=== PATIENT | female | born 1990 | race Caucasian/White ===

== ENCOUNTER 2020-11-04 10:42 | Emergency (ER) | payer OTHER, SELFPAY ==
[2020-11-04 10:46] VITALS: BP 155/82; PULSE 90; RESP 16; TEMP 36.1; O2SAT 98; BMI 31.8
--- NOTE | 2020-11-04 11:38 | ED_ITS ---
HPI - General Adult General Chief complaint: General Medical Stated complaint: anxiety Time Seen by Provider: 11/04/20 11:06 Source: patient Mode of arrival: ambulatory Limitations: no limitations History of Present Illness HPI narrative: 30 y/o female with a history of substance abuse, anxiety, PTSD, depression who presents to the ER requesting refills of her medications. She reports completing rehab in [place], [place] and now is residing in a 12 month residential program for recovery. She states her medications ran out 1 week ago and the provider from the rehab will not refill them. She is from [place] and has an appointment with a new PCP here in 2 weeks. She has been more anxious off of her medications and having a hard time sleeping. She reports compliance with her Suboxone and maintaining sobriety. She reports her medications are administered at her program. complaint: med refill Onset (ago): week(s) (1) Severity: moderate Relieving factors: medication Associated symptoms: denies other symptoms Treatments prior to arrival: none Related Data Previous Rx's Medication Instructions Recorded clindamycin HCl 300 mg PO Q6H 7 Days #28 cap 11/04/20 clonidine HCl 0.1 mg PO .every 6 hours PRN #14 11/04/20 tab hydroxyzine HCl 100 mg PO QID PRN #30 tab 11/04/20 ibuprofen 600 mg PO Q8H PRN #30 tab 11/04/20 oxcarbazepine [Trileptal] 600 mg PO BID #30 tab 11/04/20 quetiapine [Seroquel] 50 mg PO Q6H 14 Days #56 tab 11/04/20 trazodone 100 mg PO BEDTIME PRN #20 tab 11/04/20 Allergies Allergy/AdvReac Type Severity Reaction Status Date / Time amoxicillin Allergy Hives Verified 11/04/20 10:50 Review of Systems Review of Systems: Constitutional: No Fever, No Chills ENT/Mouth: No sore throat, No Rhinorrhea, No Swallowing Difficulty, +tooth pain Cardiovascular: No Chest Pain, No SOB Respiratory: No Cough, No Sputum Gastrointestinal: No Nausea, No Vomiting Genitourinary: No Dysuria, No Urinary Frequency, No Hematuria Musculoskeletal: No joint pain, No Myalgias Skin: No Skin Lesions, No rash Neuro: No Dizziness, + Headache Psych: + Anxiety/Panic, No Depression PMFSH Past Medical History Medical History Anxiety Depression Ovarian cyst PTSD (post-traumatic stress disorder) Social History Social History Advance Directives: No Advance Directives Information Provided: Yes Patient : No Physical Exam Vital Signs: Vital Signs: Last Vital Signs Temp 97 F 11/04/20 10:46 Pulse 90 11/04/20 10:46 Resp 16 11/04/20 10:46 BP 155/82 H 11/04/20 10:46 Pulse Ox 98 11/04/20 10:46 Body Mass Index 31.8 Appearance: Alert. Oriented X3. No acute distress. Eyes: Pupils equal, round and reactive to light. ENT: Pharynx with mois mucus membranes. Dentition very poor with multiple broken teeth with decay, multiple missing teeth. No palpable abscess, no trismus. Neck: Normal inspection. Neck supple. CVS: Normal heart rate and rhythm. Pulses normal. Respiratory: No respiratory distress. Breath sounds normal. Skin: Skin warm and dry. Normal skin color. Normal skin turgor. No rashes. Extremities: No lower extremity edema. Neuro: Oriented X 3. Non-focal. Course Course Course Narrative: 30 y/o female presenting with med refill request for multiple medications. Called [facility] and confirmed her medication doses and last pick ups. Will provide a 2 week supply until she can be seen by her new PCP. Will also provide Motrin for dental pain and 1 week fo augmentin for dental infection. Emergency dental numbers provided and patient will follow up. Stable for discharge. Discharge Plan Discharge Clinical Impression: Anxiety, Substance abuse, Dental decay Depression Qualifiers: Depression Type: other depression Qualified Code(s): F32.89 - Other specified depressive episodes Patient Disposition: Home, Self-Care Instructions: Toothache (ED), Anxiety (ED) Additional Instructions: Take all medications as directed. Follow up with your new doctor in 2 weeks as scheduled. Follow up with a dentist [facility] - a list was provided to you. Prescriptions: New clonidine HCl 0.1 mg tablet 0.1 mg PO .every 6 hours PRN (Reason: anxiety) Qty: 14 RF: 0 quetiapine [Seroquel] 50 mg tablet 50 mg PO Q6H 14 Days Qty: 56 RF: 0 oxcarbazepine [Trileptal] 600 mg tablet 600 mg PO BID Qty: 30 RF: 0 trazodone 100 mg tablet 100 mg PO BEDTIME PRN (Reason: sleep) Qty: 20 RF: 0 hydroxyzine HCl 50 mg tablet 100 mg PO QID PRN (Reason: anxiety) Qty: 30 RF: 0 ibuprofen 600 mg tablet 600 mg PO Q8H PRN (Reason: pain) Qty: 30 RF: 0 clindamycin HCl 300 mg capsule 300 mg PO Q6H 7 Days Qty: 28 RF: 0 Interventions: ED Discharge Assessment Last Done: 11/04/20 11:54 Discharge Date/Time: 11/04/20 11:55
== END 2020-11-04 11:55 | disposition home or self-care (01) ==
PROVIDERS: Emergency Provider Emergency Medicine
DX: F33.1 Major depressive disorder, recurrent, moderate (principal); F41.1 Generalized anxiety disorder; F43.0 Acute stress reaction; K08.89 Other specified disorders of teeth and supporting structures; Z79.899 Other long term (current) drug therapy; Z76.0 Encounter for issue of repeat prescription
CPT/HCPCS: 99283

== ENCOUNTER 2021-06-18 16:00 | Emergency (ER) | payer OTHER, SELFPAY ==
[2021-06-18 16:07] VITALS: BP 144/78; PULSE 83; RESP 18; TEMP 36.7; O2SAT 98; BMI 31.8
[2021-06-18 16:15] VITALS: BP 122/66; PULSE 79; RESP 15; TEMP 36.5; O2SAT 99
[2021-06-18 16:49] LABS: Appearance Urine HAZY; Color Urine YELLOW; Glucose Urine UA NEG (NEG); Leukocyte Esterase Urine 2+ (NEG); Nitrite Urine NEG (NEG); UACC Culture Trigger YES; Urine Blood NEG (NEG); Urine Ketones NEG (NEG); Urine Protein NEG (NEG-TRACE)
[2021-06-18 16:55] LABS: COVID-19 Test Negative (Negative); IDNOW Serial# 9DD0AD1C
[2021-06-18 16:56] LABS: Amphetamine Screen Urine Not Detected (Not Detect); Barbiturates, Urine Not Detected (Not Detect); Benzodiazepines Screen Urine Not Detected (Not Detect); Cannabinoid Screen Urine POSITIVE (Not Detect); Cocaine Screen Urine POSITIVE (Not Detect); Fentanyl, urine POSITIVE (Not Detect); Opiate Screen Urine POSITIVE (Not Detect); Phencyclidine Screen Urine Not Detected (Not Detect); Urine Pregnancy NEGATIVE (NEGATIVE)
[2021-06-18 16:57] LABS: UPreg QC Valid YES
--- NOTE | 2021-06-18 16:59 | ED.PSYCH ---
HPI - Psych General Chief Complaint: Psychiatric Symptoms Stated Complaint: feels like hurting herself Source: patient Mode of arrival: ambulatory Limitations: no limitations History of Present Illness HPI Narrative: 31-year-old female history of bipolar, depression, and anxiety presents to the ED for depression and suicidal thoughts. Patient states she has no plan, but no longer wants to live. Patient states no physical complaints. Related Data Previous Rx's Medication Instructions Recorded clindamycin HCl 300 mg capsule 300 mg PO Q6H 7 Days #28 cap 11/04/20 clonidine HCl 0.1 mg tablet 0.1 mg PO .every 6 hours PRN #14 11/04/20 tab hydroxyzine HCl 50 mg tablet 100 mg PO QID PRN #30 tab 11/04/20 ibuprofen 600 mg tablet 600 mg PO Q8H PRN #30 tab 11/04/20 oxcarbazepine 600 mg tablet 600 mg PO BID #30 tab 11/04/20 (Trileptal) quetiapine 50 mg tablet (Seroquel) 50 mg PO Q6H 14 Days #56 tab 11/04/20 trazodone 100 mg tablet 100 mg PO BEDTIME PRN #20 tab 11/04/20 Allergies Allergy/AdvReac Type Severity Reaction Status Date / Time amoxicillin Allergy Hives Verified 11/04/20 10:50 Review of Systems Review of Systems: Suicide and depression Yes all other systems are reviewed and are negative [facility] Past Medical History Medical History Anxiety Depression Ovarian cyst PTSD (post-traumatic stress disorder) Social History Social History Advance Directives: No Advance Directives Information Provided: Yes Physical Exam Vital Signs: Vital Signs: Last Vital Signs Temp 97.7 F 06/18/21 16:15 Pulse 79 06/18/21 16:15 Resp 15 06/18/21 16:15 BP 122/66 06/18/21 16:15 Pulse Ox 99 06/18/21 16:15 BMI result Body Mass Index 31.8 Const: General: cooperative, healthy appearing, comfortable, no acute distress, well developed, alert, awake and Physically active Orientation/consciousness: patient oriented x3 HENMT: Head: Yes normal to inspection, Yes No palpable skull fracture present, Yes normocephalic, Yes atraumatic and No abrasion Eyes: General: appearance normal, both eyes and all related structures Neck: Neck: Yes normal visual inspection, Yes full ROM, Yes no lymphadenopathy, Yes no meningeal signs, Yes trachea midline, Yes supple, No anterior neck swelling and No tender Chest: Chest palpation & inspection: normal inspection of the chest and normal palpation of entire chest wall Resp: Effort & Inspection: normal respiratory effort and able to speak in complete sentences Auscultation: clear to auscultation bilaterally Cardio: Jugular venous distension: no JVD Heart sounds: S1 normal heart sound present and S2 normal heart sound present GI: Inspection: Yes normal to inspection and No abdominal wall ecchymosis Palpation (GI): Soft to palpation, not firm, nontender, no guarding and not rigid : General: No CVA tenderness and Yes no CVA tenderness Back/Spine/Pelvis: Back: no CVA tenderness, No CVA tenderness and No back tenderness Skin: General skin exam: no rashes or lesions noted and elasticity normal Neuro: General: patient oriented x3, gait normal, no meningeal signs and CN's II-XI intact bilaterally Cranial nerves: Yes CN's II-XII intact bilaterally Extrem: General: Yes normal to inspection and Yes full ROM Psych: Appearance: grossly normal, well kempt and not disheveled Course Course Course Narrative: Labs ordered. Crisis consult placed Reevaluation(s) Reevaluation #1: Labs normal. Patient awaiting crisis drafter mechanical Time: 02:25 MDM - Psych MDM Narrative Medical decision making narrative: Depression Lab Data Result diagrams: 06/18/21 17:00 06/18/21 17:00 Labs: Lab Results 06/18/21 06/18/21 06/18/21 Range/Units 16:25 16:25 16:25 WBC (4.8-10.8) X10*3/uL RBC (4.20-5.50) X10*6/uL Hgb (12.0-16.0) g/dl Hct (37.0-47.0) % MCV (80.0-98.0) fL MCH (27.0-33.0) pg MCHC (31.0-35.0) g/dl RDW (11.0-16.0) % Plt Count (160-400) X10*3/uL MPV (9.4-12.3) fL Immature Gran % (Auto) (0.0-0.4) % Neut % (Auto) (45-73) % Lymph % (Auto) (20-40) % [place] % (Auto) (2-11) % Eos % (Auto) (0-4) % Baso % (Auto) (0-2) % Lymph # (Auto) (1.2-4.9) X10*3/uL [place] # (Auto) (0.1-1.2) X10*3/uL Eos # (Auto) (0.0-0.4) X10*3/uL Baso # (Auto) (0.0-0.2) X10*3/uL Abs Immat Gran (auto) (0.00-0.03) X10*3/uL Absolute Neuts (auto) (2.0-8.3) x10*3/uL Absolute Nucleated RBC (0.0-0.012) X10*3/uL Nucleated RBC % (auto) (0.0-0.2) /100WBC Sodium (135-145) mmol/L Potassium (3.3-5.1) mmol/L Chloride (96-108) mmol/L Carbon Dioxide (22-29) mmol/L Anion Gap (12-20) BUN (9-16) mg/dL Creatinine (0.5-1.4) mg/dL Estim Creat Clear Calc Estimated GFR Random Glucose (60-115) mg/dL Calcium (8.4-10.2) mg/dL Total Bilirubin (0.0-1.0) mg/dL AST (5-31) U/L ALT (0-31) U/L Alkaline Phosphatase (39-117) U/L Total Protein (6.5-8.0) g/dL Albumin (3.5-5.0) g/dL Urine Color YELLOW Urine Appearance HAZY Urine pH 6.0 (5.0-8.0) Ur Specific Commerce 1.020 (1.005-1.025) Urine Protein NEG (NEG-TRACE) MG/DL Urine Glucose (UA) NEG (NEG) MG/DL Urine Ketones NEG (NEG) MG/DL Urine Blood NEG (NEG) Urine Nitrite NEG (NEG) Ur Leukocyte Esterase 2+ H (NEG) Urine RBC 0-2 (0) /HPF Urine WBC 1-4 (0-4) /HPF Ur Squamous Epith Cells 1+ /LPF Urine Bacteria 2+ /LPF Urine Test (NEGATIVE) Urine Opiates Screen POSITIVE H (Not Detect) Urine Fentanyl Screen POSITIVE H (Not Detect) Ur Barbiturates Screen Not Detected (Not Detect) Ur Phencyclidine Scrn Not Detected (Not Detect) Ur Amphetamines Screen Not Detected (Not Detect) U Benzodiazepines Scrn Not Detected (Not Detect) Urine Cocaine Screen POSITIVE H (Not Detect) U Marijuana (THC) Screen POSITIVE H (Not Detect) Ethyl Alcohol mg/dL COVID-19 (NILAY) Negative (Negative) COVID-19 Clin Com See Note 06/18/21 06/18/21 06/18/21 Range/Units 16:25 17:00 17:00 WBC 9.7 (4.8-10.8) X10*3/uL RBC 4.12 L (4.20-5.50) X10*6/uL Hgb 12.2 (12.0-16.0) g/dl Hct 37.5 (37.0-47.0) % MCV 91.0 (80.0-98.0) fL MCH 29.6 (27.0-33.0) pg MCHC 32.5 (31.0-35.0) g/dl RDW 14.5 (11.0-16.0) % Plt Count 341 (160-400) X10*3/uL MPV 8.6 L (9.4-12.3) fL Immature Gran % (Auto) 0.2 (0.0-0.4) % Neut % (Auto) 67.5 (45-73) % Lymph % (Auto) 23.2 (20-40) % [place] % (Auto) 5.8 (2-11) % Eos % (Auto) 2.9 (0-4) % Baso % (Auto) 0.4 (0-2) % Lymph # (Auto) 2.3 (1.2-4.9) X10*3/uL [place] # (Auto) 0.6 (0.1-1.2) X10*3/uL Eos # (Auto) 0.3 (0.0-0.4) X10*3/uL Baso # (Auto) 0.0 (0.0-0.2) X10*3/uL Abs Immat Gran (auto) 0.02 (0.00-0.03) X10*3/uL Absolute Neuts (auto) 6.6 (2.0-8.3) x10*3/uL Absolute Nucleated RBC 0.000 (0.0-0.012) X10*3/uL Nucleated RBC % (auto) 0.0 (0.0-0.2) /100WBC Sodium 140 (135-145) mmol/L Potassium 3.8 (3.3-5.1) mmol/L Chloride 104 (96-108) mmol/L Carbon Dioxide 30 H (22-29) mmol/L Anion Gap 10 L (12-20) BUN 9 (9-16) mg/dL Creatinine 0.76 (0.5-1.4) mg/dL Estim Creat Clear Calc 109.5 Estimated GFR > 60 Random Glucose 100 (60-115) mg/dL Calcium 9.1 (8.4-10.2) mg/dL Total Bilirubin < 0.2 (0.0-1.0) mg/dL AST 16 (5-31) U/L ALT 18 (0-31) U/L Alkaline Phosphatase 57 (39-117) U/L Total Protein 6.1 L (6.5-8.0) g/dL Albumin 3.5 (3.5-5.0) g/dL Urine Color Urine Appearance Urine pH (5.0-8.0) Ur Specific [place] (1.005-1.025) Urine Protein (NEG-TRACE) MG/DL Urine Glucose (UA) (NEG) MG/DL Urine Ketones (NEG) MG/DL Urine Blood (NEG) Urine Nitrite (NEG) Ur Leukocyte Esterase (NEG) Urine RBC (0) /HPF Urine WBC (0-4) /HPF Ur Squamous Epith Cells /LPF Urine Bacteria /LPF Urine Test NEGATIVE (NEGATIVE) Urine Opiates Screen (Not Detect) Urine Fentanyl Screen (Not Detect) Ur Barbiturates Screen (Not Detect) Ur Phencyclidine Scrn (Not Detect) Ur Amphetamines Screen (Not Detect) U Benzodiazepines Scrn (Not Detect) Urine Cocaine Screen (Not Detect) U Marijuana (THC) Screen (Not Detect) Ethyl Alcohol mg/dL COVID-19 (NILAY) (Negative) COVID-19 Clin Com 06/18/21 Range/Units 17:00 WBC (4.8-10.8) X10*3/uL RBC (4.20-5.50) X10*6/uL Hgb (12.0-16.0) g/dl Hct (37.0-47.0) % MCV (80.0-98.0) fL MCH (27.0-33.0) pg MCHC (31.0-35.0) g/dl RDW (11.0-16.0) % Plt Count (160-400) X10*3/uL MPV (9.4-12.3) fL Immature Gran % (Auto) (0.0-0.4) % Neut % (Auto) (45-73) % Lymph % (Auto) (20-40) % [place] % (Auto) (2-11) % Eos % (Auto) (0-4) % Baso % (Auto) (0-2) % Lymph # (Auto) (1.2-4.9) X10*3/uL [place] # (Auto) (0.1-1.2) X10*3/uL Eos # (Auto) (0.0-0.4) X10*3/uL Baso # (Auto) (0.0-0.2) X10*3/uL Abs Immat Gran (auto) (0.00-0.03) X10*3/uL Absolute Neuts (auto) (2.0-8.3) x10*3/uL Absolute Nucleated RBC (0.0-0.012) X10*3/uL Nucleated RBC % (auto) (0.0-0.2) /100WBC Sodium (135-145) mmol/L Potassium (3.3-5.1) mmol/L Chloride (96-108) mmol/L Carbon Dioxide (22-29) mmol/L Anion Gap (12-20) BUN (9-16) mg/dL Creatinine (0.5-1.4) mg/dL Estim Creat Clear Calc Estimated GFR Random Glucose (60-115) mg/dL Calcium (8.4-10.2) mg/dL Total Bilirubin (0.0-1.0) mg/dL AST (5-31) U/L ALT (0-31) U/L Alkaline Phosphatase (39-117) U/L Total Protein (6.5-8.0) g/dL Albumin (3.5-5.0) g/dL Urine Color Urine Appearance Urine pH (5.0-8.0) Ur Specific [place] (1.005-1.025) Urine Protein (NEG-TRACE) MG/DL Urine Glucose (UA) (NEG) MG/DL Urine Ketones (NEG) MG/DL Urine Blood (NEG) Urine Nitrite (NEG) Ur Leukocyte Esterase (NEG) Urine RBC (0) /HPF Urine WBC (0-4) /HPF Ur Squamous Epith Cells /LPF Urine Bacteria /LPF Urine Test (NEGATIVE) Urine Opiates Screen (Not Detect) Urine Fentanyl Screen (Not Detect) Ur Barbiturates Screen (Not Detect) Ur Phencyclidine Scrn (Not Detect) Ur Amphetamines Screen (Not Detect) U Benzodiazepines Scrn (Not Detect) Urine Cocaine Screen (Not Detect) U Marijuana (THC) Screen (Not Detect) Ethyl Alcohol < 10 mg/dL COVID-19 (NILAY) (Negative) COVID-19 Clin Com Discharge Plan Discharge Clinical Impression: Depression, Suicidal ideation Patient Disposition: Still a Patient Prescriptions: No Action clonidine HCl 0.1 mg tablet 0.1 mg PO .every 6 hours PRN (Reason: anxiety) Qty: 14 RF: 0 quetiapine [Seroquel] 50 mg tablet 50 mg PO Q6H 14 Days Qty: 56 RF: 0 oxcarbazepine [Trileptal] 600 mg tablet 600 mg PO BID Qty: 30 RF: 0 trazodone 100 mg tablet 100 mg PO BEDTIME PRN (Reason: sleep) Qty: 20 RF: 0 hydroxyzine HCl 50 mg tablet 100 mg PO QID PRN (Reason: anxiety) Qty: 30 RF: 0 ibuprofen 600 mg tablet 600 mg PO Q8H PRN (Reason: pain) Qty: 30 RF: 0 clindamycin HCl 300 mg capsule 300 mg PO Q6H 7 Days Qty: 28 RF: 0
[2021-06-18 17:04] LABS: Basophils Percent Auto 0.4 % (0-2); Eosinophils Absolute Auto 0.3 X10*3/uL (0.0-0.4); Eosinophils Percent Auto 2.9 % (0-4); Hematocrit 37.5 % (37.0-47.0); Hemoglobin 12.2 g/dl (12.0-16.0); Imm Gran Abs Auto 0.02 X10*3/uL (0.00-0.03); Imm Gran Pct Auto 0.2 % (0.0-0.4); Lymphocytes Absolute Auto 2.3 X10*3/uL (1.2-4.9); Lymphocytes Percent Auto 23.2 % (20-40); MANUAL DIFF FLAG NO; Mean Corpuscular HGB Conc 32.5 g/dl (31.0-35.0); Mean Corpuscular Hemoglobin 29.6 pg (27.0-33.0); Mean Platelet Volume 8.6 fL (9.4-12.3); Monocytes Absolute Auto 0.6 X10*3/uL (0.1-1.2); Monocytes Percent Auto 5.8 % (2-11); Neutrophils Absolute Auto 6.6 x10*3/uL (2.0-8.3); Neutrophils Percent Auto 67.5 % (45-73); Platelet Count 341 X10*3/uL (160-400); Red Blood Count 4.12 X10*6/uL (4.20-5.50); Red Cell Distribution Width 14.5 % (11.0-16.0); White Blood Count 9.7 X10*3/uL (4.8-10.8)
[2021-06-18 17:10] LABS: Bacteria Urine 2+ /LPF; RBC Urine 0-2 /HPF (0); Squamous Epithelial Cell Urine 1+ /LPF
[2021-06-18 17:23] LABS: Ethanol < 10 mg/dL
[2021-06-18 17:27] LABS: Alanine Aminotransferase 18 U/L (0-31); Albumin Level 3.5 g/dL (3.5-5.0); Alkaline Phosphatase 57 U/L (39-117); Aspartate Amino Transferase 16 U/L (5-31); Bilirubin Total < 0.2 mg/dL (0.0-1.0); Blood Urea Nitrogen 9 mg/dL (9-16); Calcium 9.1 mg/dL (8.4-10.2); Creatinine Clr Calc Pharmacy 109.5; Estimated Glomerular Filt Rate > 60; Glucose Random 100 mg/dL (60-115); Total Protein 6.1 g/dL (6.5-8.0)
[2021-06-18 17:35] LABS: Anion Gap 10 (12-20); Carbon Dioxide 30 mmol/L (22-29); Chloride 104 mmol/L (96-108); Potassium 3.8 mmol/L (3.3-5.1); Sodium 140 mmol/L (135-145)
--- NOTE | 2021-06-18 22:40 | PC.NURSE ---
Patient resting comfortably in bed waiting to be seen by [facility].
[2021-06-19 09:54] VITALS: BP 137/85; PULSE 69; TEMP 36.9; O2SAT 100
[2021-06-19 14:04] VITALS: PULSE 77
--- NOTE | 2021-06-19 14:12 | MHC.RECOVSUP ---
Recovery Support note: Patient is a 31 year old Citizen Of [place] speaking female who presented to [facility] ED due to SI with no plan. Patient was evaluated by The CARE Team and it was determined that patient would benefit from EATS or a dual diagnosis program. This life insurance underwriter met with patient to discuss substance use and withdrawal symptoms. Patient appears uncomfortable and reports withdrawal symptoms at this time. Patient states she last used the morning of 06/18/21 and reports typically using two bundles a day. Patient reports she attends a [facility] clinic and that she last received methadone a week ago. Clinic closed at this time, this life insurance underwriter will confirm patient's dose on 06/20/21. This life insurance underwriter will refer patient to EATS and dual diagnosis programs.
[2021-06-19] MEDS: LORazepam 1 MG TABLET PO (14:21)
[2021-06-19] MEDS: Ondansetron ODT 4 MG TAB.RAPDIS TRANSLINGU (14:21)
[2021-06-19] MEDS: methADONE HCl 20 MG/2 ML ORAL.CONC PO (15:16)
[2021-06-19 17:16] VITALS: BP 121/65; PULSE 83; RESP 14; TEMP 36.1; O2SAT 100
--- NOTE | 2021-06-20 05:21 | PC.NURSE ---
Patient slept through the night, no distress observed/reported, behavior non concerning at this time, patient is off her medication since December 2020, patient's disposition per care team is section 12 inpatient bed search, VSS, will continue to monitor.
[2021-06-20 06:30] VITALS: BP 134/82; PULSE 58; RESP 16; TEMP 36.5; O2SAT 99
--- NOTE | 2021-06-20 07:32 | PC.NURSE ---
UP TO BR, BKFST EATEN.
--- NOTE | 2021-06-20 08:22 | MHC.RECOVSUP ---
Recovery Support note: This grant writer spoke with Peggy BARTLETT at [facility] in [place] ([phone]). Peggy reports that patient was last dosed on 05/31/21 and that she received 60mg. Patient is able to return to the clinic with a last dose letter to resume treatment. This grant writer will complete confirmation form to be faxed to pharmacy.
[2021-06-20 08:31] VITALS: BP 136/71; PULSE 76; RESP 17; TEMP 36.8; O2SAT 100
--- NOTE | 2021-06-20 08:53 | MHC.RECOVSUP ---
Recovery Support note: EATS/ Dual diagnosis bedsearch conducted. EATS [facility] - no beds [facility] - no admissions due to COVID [facility] - no admissions due to COVID [facility] - no admissions due to COVID Dual diagnoisis [facility] - no beds [facility] ([phone]) - information faxed to be added to waitlist [facility] ([phone]) - information faxed [facility] ([phone]) - information faxed This lead technical writer awaits follow up from facilities who accepted referral.
[2021-06-20] MEDS: methADONE HCl 20 MG/2 ML ORAL.CONC PO (09:25)
[2021-06-20] MEDS: methADONE HCl 20 MG/2 ML ORAL.CONC 10 MG PO (10:14)
--- NOTE | 2021-06-20 12:16 | MHC.CARE ---
CARE Team meets with pt today at pt's request, as she stated to her nurse that she would like to leave the ED. Pt states that what she intended to say is that she would like to be placed in treatment as soon as possible. Pt states that she would prefer detox placement at this time, and would be willing to follow up with mental health treatment on an outpatient basis after completing a detox program. Pt presented to the ED yesterday with vague SI in the context of increased depression relation to substance use. Pt denies plan, means or intent yesterday. Today she denies SI, and states that she feels confident that she can maintain her personal safety in a detox program. Pt does not require a higher level of mental health treatment at this time and would benefit form detox placement with step down to additional recovery supports. Pt is agreeable with this plan. Rambo Tatum from recovery support services agrees to complete detox bedsearch. CARE or recovery team will update pt once detox bedsearch is completed.
--- NOTE | 2021-06-20 12:19 | HO.ADDICT_ITS ---
History of Present Illness Date of Service: 06/20/2021 Chief Complaint: feels like hurting herself Reason for Consult: OUD Requesting physician: Lilo Eckert Discussed with referring provider: Yes Sources of Information: patient interviewed and chart reviewed HPI Narrative: patient is a 31 year old female with OUD currently awaiting [facility] admission for worsening depression and suicidal ideation in the context of substance use. Consult requested as patient was in acute opioid withdrawal and methadone administered to treat. (20mg yesterday 06/19 and 20mg this AM) Patient seen briefly by this rfp writer as she was not feeling well. Reporting body aches, chills, irritability, nausea, overall malaise. She reports she had been on methadone very recently and it was verified that she had been at 60mg with last dose in late May. She states she is currently using about 3 bundles of heroin/fentanyl IV QD. She would like to reengage in treatment Review of Systems Constitutional: Reports as per HPI Diagnostics Vital Signs (24Hr): Vital Signs - 24 hr 06/19/21 17:16 06/20/21 06:30 06/20/21 08:31 Temperature 97 F 97.7 F 98.3 F Pulse Rate 83 58 76 Respiratory Rate 14 16 17 Blood Pressure 121/65 134/82 136/71 Pulse Oximetry 100 99 100 BMI result Body Mass Index 31.8 Labs Results: 06/18/21 17:00 06/18/21 17:00 Labs: Laboratory Results - last 48 hr 06/18/21 06/18/21 06/18/21 16:25 16:25 16:25 WBC RBC Hgb Hct MCV MCH MCHC RDW Plt Count MPV Immature Gran % (Auto) Neut % (Auto) Lymph % (Auto) Atkinson % (Auto) Eos % (Auto) Baso % (Auto) Lymph # (Auto) Atkinson # (Auto) Eos # (Auto) Baso # (Auto) Abs Immat Gran (auto) Absolute Neuts (auto) Absolute Nucleated RBC Nucleated RBC % (auto) Sodium Potassium Chloride Carbon Dioxide Anion Gap BUN Creatinine Estim Creat Clear Calc Estimated GFR Random Glucose Calcium Total Bilirubin AST ALT Alkaline Phosphatase Total Protein Albumin Urine Color YELLOW Urine Appearance HAZY Urine pH 6.0 Ur Specific [place] 1.020 Urine Protein NEG Urine Glucose (UA) NEG Urine Ketones NEG Urine Blood NEG Urine Nitrite NEG Ur Leukocyte Esterase 2+ H Urine RBC 0-2 Urine WBC 1-4 Ur Squamous Epith Cells 1+ Urine Bacteria 2+ Urine Test Urine Opiates Screen POSITIVE H Urine Fentanyl Screen POSITIVE H Ur Barbiturates Screen Not Detected Ur Phencyclidine Scrn Not Detected Ur Amphetamines Screen Not Detected U Benzodiazepines Scrn Not Detected Urine Cocaine Screen POSITIVE H U Marijuana (THC) Screen POSITIVE H Ethyl Alcohol COVID-19 (NILAY) Negative COVID-19 Clin Com See Note 06/18/21 06/18/21 06/18/21 16:25 17:00 17:00 WBC 9.7 RBC 4.12 L Hgb 12.2 Hct 37.5 MCV 91.0 MCH 29.6 MCHC 32.5 RDW 14.5 Plt Count 341 MPV 8.6 L Immature Gran % (Auto) 0.2 Neut % (Auto) 67.5 Lymph % (Auto) 23.2 Atkinson % (Auto) 5.8 Eos % (Auto) 2.9 Baso % (Auto) 0.4 Lymph # (Auto) 2.3 Atkinson # (Auto) 0.6 Eos # (Auto) 0.3 Baso # (Auto) 0.0 Abs Immat Gran (auto) 0.02 Absolute Neuts (auto) 6.6 Absolute Nucleated RBC 0.000 Nucleated RBC % (auto) 0.0 Sodium 140 Potassium 3.8 Chloride 104 Carbon Dioxide 30 H Anion Gap 10 L BUN 9 Creatinine 0.76 Estim Creat Clear Calc 109.5 Estimated GFR > 60 Random Glucose 100 Calcium 9.1 Total Bilirubin < 0.2 AST 16 ALT 18 Alkaline Phosphatase 57 Total Protein 6.1 L Albumin 3.5 Urine Color Urine Appearance Urine pH Ur Specific [place] Urine Protein Urine Glucose (UA) Urine Ketones Urine Blood Urine Nitrite Ur Leukocyte Esterase Urine RBC Urine WBC Ur Squamous Epith Cells Urine Bacteria Urine Test NEGATIVE Urine Opiates Screen Urine Fentanyl Screen Ur Barbiturates Screen Ur Phencyclidine Scrn Ur Amphetamines Screen U Benzodiazepines Scrn Urine Cocaine Screen U Marijuana (THC) Screen Ethyl Alcohol COVID-19 (NILAY) COVID-19 Clin Com 06/18/21 17:00 WBC RBC Hgb Hct MCV MCH MCHC RDW Plt Count MPV Immature Gran % (Auto) Neut % (Auto) Lymph % (Auto) Atkinson % (Auto) Eos % (Auto) Baso % (Auto) Lymph # (Auto) Atkinson # (Auto) Eos # (Auto) Baso # (Auto) Abs Immat Gran (auto) Absolute Neuts (auto) Absolute Nucleated RBC Nucleated RBC % (auto) Sodium Potassium Chloride Carbon Dioxide Anion Gap BUN Creatinine Estim Creat Clear Calc Estimated GFR Random Glucose Calcium Total Bilirubin AST ALT Alkaline Phosphatase Total Protein Albumin Urine Color Urine Appearance Urine pH Ur Specific [place] Urine Protein Urine Glucose (UA) Urine Ketones Urine Blood Urine Nitrite Ur Leukocyte Esterase Urine RBC Urine WBC Ur Squamous Epith Cells Urine Bacteria Urine Test Urine Opiates Screen Urine Fentanyl Screen Ur Barbiturates Screen Ur Phencyclidine Scrn Ur Amphetamines Screen U Benzodiazepines Scrn Urine Cocaine Screen U Marijuana (THC) Screen Ethyl Alcohol < 10 COVID-19 (NILAY) COVID-19 Clin Com Mental Status Exam Mental Status Exam Patient Appearance: Appropriate (hospital attire, arms crossed, somewhat bent over, appearing uncomfortable ) Level of Consciousness: Awake, Appropriate and Alert Patient Behavior: Appropriate Mood Description: Anxious and Apprehensive Affect Description: Blunted Judgement: Fair Medications Medications Current Medications Clonidine HCl (Clonidine Hcl 0.1 Mg Tablet) 0.1 mg PO TID PRN; Protocol PRN Reason: anxiety/restlessness Methadone HCl (Methadone Hcl 20 Mg/2 Ml Oral.Conc) 20 mg PO DAILY ABDON Last Admin: 06/20/21 09:25 Dose: 20 mg Documented by: Allergies Allergies Allergy/AdvReac Type Severity Reaction Status Date / Time amoxicillin Allergy Hives Verified 11/04/20 10:50 Assessment & Plan Assessment & Plan (1) Opioid use disorder, severe, dependence: Status: Acute Code(s): F11.20 - Opioid dependence, uncomplicated Assessment and Plan: * additional 10mg methadone ordered and administered * will order additional 5mg later this afternoon/ early evening * methadone 40mg for tomorrow morning * clonidine 0.1mg TID PRN for restlessness * trazodone 50mg QHS * covering provider aware--recovery account support specialist also aware and following I spent __30____ minutes with the patient and/or on the patient floor today, greater than?50% of which was spent counseling/coordinating care. [facility] Past Medical History Medical History Anxiety Depression Ovarian cyst PTSD (post-traumatic stress disorder) Social History Social History Advance Directives: No Advance Directives Information Provided: Yes Healthcare Proxy: No Guardian: No
[2021-06-20] MEDS: cloNIDine HCL 0.1 MG TABLET PO ×2 (12:51→23:04)
--- NOTE | 2021-06-20 17:06 | MHC.RECOVSUP ---
Recovery Support note: ATS/EATS/ Dual diagnosis bedsearch has been exhausted. This data analyst report writer spoke with the emergency management program specialist at the [facility] that patient previously resided at. They are willing to take patient back tomorrow if she remains in the ED. Patient will complete intake at 10AM on 06/21/20 and will be able to return to the program after. Patient will need a last dose letter provided prior to discharge. Discussed case with CARE Team.
[2021-06-20] MEDS: methADONE HCl 20 MG/2 ML ORAL.CONC 5 MG PO (17:26)
[2021-06-20] MEDS: Nicotine 21 MG PATCH.TD24 TRANSDERMA (17:26)
--- NOTE | 2021-06-20 17:52 | PC.NURSE ---
Pt alert and oriented x4, calm and cooperative. Denies pain. Pt ambulating without issues, steady on her feet. Pt eating without issues. Resting in bed without issues. Will continue to monitor.
[2021-06-20] MEDS: traZODone HCL 50 MG TABLET PO (21:05)
[2021-06-20 23:06] VITALS: BP 132/77; PULSE 67; RESP 16; TEMP 36.8; O2SAT 100
--- NOTE | 2021-06-21 06:11 | PC.NURSE ---
Patient slept through the night, no distress observed/reported, behavior cooperative and non concerning at this time, compliant with medication, patient's disposition per care team is detox be search, care team and monomer recovery operator will coordinate detox bed search, VSS, will continue to monitor.
--- NOTE | 2021-06-21 07:19 | PC.NURSE ---
patient appears to remain asleep at present respirations are even and unlabored patient appears in no distress, soon after t/w's arrival patient requests methadone
[2021-06-21 07:36] VITALS: BP 141/75; PULSE 56; RESP 12; TEMP 36.8; O2SAT 100
[2021-06-21] MEDS: methADONE HCl 20 MG/2 ML ORAL.CONC 40 MG PO (07:57)
[2021-06-21] MEDS: cloNIDine HCL 0.1 MG TABLET PO (07:57)
--- NOTE | 2021-06-21 10:53 | PHA.MEDREC ---
Pharmacy Consult ? Medication Reconciliation Pharmacy has completed the medication reconciliation. Patient report taking all medication on EMR. There is no fill history for patient since October. Contact [facility] on [address] to confirm. I DC'd all maitenance medications from home medication list patient was on high dose of oxcarbazepine and may need to be titrated up. It is possible that patient still has PRN if she does not take often. Shona Davies, CarolyneD
[2021-06-21 11:04] LABS: COVID-19 Test Negative (Negative)
--- NOTE | 2021-06-21 12:38 | MHC.RECOVSUP ---
? Reason for consult:Recovery support o Current location:discharged o Identified substance use concern: heroin - Withdrawal - Seeking ATS (detox) - Support ? Intervention: o ATS bed search started/completed/in process o MAT started or to be started o Community resources provided o Harm reduction discussion ? Plan: o Follow up tomorrow o Patient to follow up with [facility] after discharge ? Additional information:Patient had a bed with [facility] at [address] [place] [address], patient got dressed and eloped from the decon room.
== END 2021-06-21 11:36 | disposition home or self-care (01) ==
PROVIDERS: Physician Assistant; Physician Assistant Medical; Emergency Provider Emergency Medicine
DX: F32.A Depression, unspecified (principal); R45.851 Suicidal ideations; F11.20 Opioid dependence, uncomplicated; F31.9 Bipolar disorder, unspecified; F41.9 Anxiety disorder, unspecified; F43.10 Post-traumatic stress disorder, unspecified; F12.90 Cannabis use, unspecified, uncomplicated; Z20.822 Contact with and (suspected) exposure to COVID-19; Z79.899 Other long term (current) drug therapy
CPT/HCPCS: 80053; 80307; 81001; 81025; 82077; 85025; 87086; 87635; 99285

== ENCOUNTER 2022-06-22 12:10 | Emergency (ER) | payer OTHER, SELFPAY ==
[2022-06-22 12:19] VITALS: BP 134/72; PULSE 68; RESP 18; TEMP 36.8; O2SAT 98; BMI 21.2
--- NOTE | 2022-06-22 12:21 | ED.GENADULT ---
HPI - General Adult General Chief complaint: General Medical Stated complaint: medication Time Seen by Provider: 06/22/22 12:26 Source: patient Mode of arrival: ambulatory Limitations: no limitations History of Present Illness HPI narrative: This is a 32-year-old female with a history of anxiety, depression, opiate use disorder who is here seeking dosing for methadone. Patient reports she has been on methadone long-term. Patient reports she missed going to the clinic today to receive her dose. Patient denies any SI, HI, physical complaints Related Data Home Medications Medication Instructions Recorded Confirmed clonidine HCl 0.1 mg tablet 0.1 mg PO Q6H PRN anxiety 06/21/21 06/21/21 Previous Rx's Medication Instructions Recorded hydroxyzine HCl 50 mg tablet 100 mg PO QID PRN anxiety #30 tabs 11/04/20 ibuprofen 600 mg tablet 600 mg PO Q8H PRN pain #30 tabs 11/04/20 trazodone 100 mg tablet 100 mg PO BEDTIME PRN sleep #20 11/04/20 tabs clonidine HCl 0.1 mg tablet 0.1 mg PO TID #90 tabs 06/21/21 hydroxyzine HCl 50 mg tablet 100 mg PO QID PRN anxiety 30 days 06/21/21 #240 tabs ibuprofen 800 mg tablet 800 mg PO Q6H PRN pain #90 tabs 06/21/21 trazodone 50 mg tablet 50 mg PO BEDTIME PRN insomnia #30 06/21/21 tabs Allergies Allergy/AdvReac Type Severity Reaction Status Date / Time amoxicillin Allergy Hives Verified 11/04/20 10:50 Review of Systems Review of Systems: Yes all other systems are reviewed and are negative Constitutional: Constitutional: Reports no additional constitutional complaints, Denies body ache(s), Denies chills, Denies fever(s), Denies headache(s) and Denies weakness Eyes: Eyes: Reports no additional eye complaints and Denies change in vision ENT: Reports system reviewed and no additional complaints, except as documented, Denies dizziness, Denies headache(s), Denies nasal congestion, Denies nasal discharge and Denies neck pain Cardiovascular: Cardiovascular: Reports no additional cardiovascular complaints, Denies chest pain, Denies leg edema and Denies dyspnea Respiratory: Respiratory: Reports no additional respiratory complaints, Denies cough and Denies dyspnea Gastrointestinal: Gastrointestinal: Reports no additional gastrointestinal complaints, Denies abdominal pain, Denies diarrhea, Denies nausea and Denies vomiting Genitourinary: Genitourinary: Reports no additional female genitourinary complaints and Denies urinary incontinence Musculoskeletal: Musculoskeletal: Reports no additional musculoskeletal complaints, Denies back pain, Denies arthralgias, Denies joint swelling, Denies neck pain, Denies numbness and Denies tingling Integumentary/Breasts: Skin/Breast: Reports system reviewed and no additional complaints, except as docu and Denies rash Neurologic: Reports system reviewed and no additional complaints, except as documented, Denies dizziness, Denies headache(s), Denies numbness, Denies tingling and Denies weakness PMFSH Past Medical History Attestation statement: The following information was validated with the patient. Source: old records reviewed and nursing notes reviewed Medical History Anxiety Depression Ovarian cyst PTSD (post-traumatic stress disorder) Social History Social History Advance Directives: No Advance Directives Information Provided: No Physical Exam ED Vital Signs: Vital Signs - 24 hr 06/22/22 12:19 Temperature 98.3 F Pulse Rate 68 Respiratory Rate 18 Blood Pressure 134/72 Pulse Oximetry 98 Oxygen Delivery Method Room Air BMI result Body Mass Index 21.2 Const General: alert Orientation/consciousness: patient oriented x3 Limitations: no limitations HENMT Head: Yes normal to inspection Ears: hearing grossly normal bilaterally Eyes General: appearance normal, both eyes and all related structures Pupils: Equal, round and reactive pupils present Neck Neck: Yes normal visual inspection Chest Chest palpation & inspection: normal inspection of the chest Resp Effort & Inspection: normal respiratory effort Cardio Peripheral pulses: Peripheral pulses 2+ throughout Skin General skin exam: no rashes or lesions noted Neuro General: patient oriented x3 and moves all extremities Cranial nerves: Yes Equal, round and reactive pupils present Cognition (Neuro): normal cognition Gait exam (Neuro): Normal gait present Course Course Course Narrative: Patient eloped prior to receiving methadone dose Medical Decision Making Medical Decision Making MDM Narrative: 32-year-old female with history of opiate use disorder here seeking dosing for her methadone. tient reports that she was released from program on June 19. She has her last dose letter of receiving methadone 110 mg that day. Patient reports unable to get in with the clinic today or the last two days to receive her dose. Will involve high school sports coach to obtain collateral info. If appropriate will dose patient. Differential Diagnosis Differential Diagnoses: The differential diagnosis associated with the presentation includes Opiate use disorder Consult Healthcare Provider Consult to high school sports coach-spoke to brissa beard from recovery. If less the 3 days from last dose resume her previous dose. Therefore 100mg methadone ordered. Discharge Plan Discharge Clinical Impression: Opioid use disorder, severe, dependence Patient Disposition: Still a Patient Instructions: Opioid Use Disorder (ED) Prescriptions: No Action trazodone 100 mg tablet 100 mg PO BEDTIME PRN (Reason: sleep) Qty: 20 0RF hydroxyzine HCl 50 mg tablet 100 mg PO QID PRN (Reason: anxiety) Qty: 30 0RF ibuprofen 600 mg tablet 600 mg PO Q8H PRN (Reason: pain) Qty: 30 0RF clonidine HCl 0.1 mg tablet 0.1 mg PO Q6H PRN (Reason: anxiety) clonidine HCl 0.1 mg tablet 0.1 mg PO TID Qty: 90 0RF hydroxyzine HCl 50 mg tablet 100 mg PO QID PRN (Reason: anxiety) 30 Days Qty: 240 0RF trazodone 50 mg tablet 50 mg PO BEDTIME PRN (Reason: insomnia) Qty: 30 0RF ibuprofen 800 mg tablet 800 mg PO Q6H PRN (Reason: pain) Qty: 90 0RF
--- NOTE | 2022-07-26 13:16 | MHC.CARE ---
Pt refused to speak with CARE team clinician currently, CARE team explained discharge plan could not be decided until she participates in assessment. CARE team offered to return later in the evening to F/U and pt is agreeable.
== END 2022-06-22 14:03 | disposition left against medical advice (07) ==
PROVIDERS: Emergency Provider Student in an Organized Health Care Education/Training Program
DX: F11.20 Opioid dependence, uncomplicated (principal)
CPT/HCPCS: 99282

== ENCOUNTER 2022-07-22 17:18 | Inpatient (IN) | payer OTHER, MEDICAID, SELFPAY ==
--- NOTE | ~2022-07-22 | XR_ITS ---
EXAMINATION: PORTABLE CHEST 1 VIEW CLINICAL INFORMATION: fever . COMPARISON: No recent pertinent prior studies are available for comparison. TECHNIQUE: Portable frontal view of the chest was obtained. FINDINGS: Lungs are well expanded. Minimal increased markings seen at the lung bases may reflect component of atelectasis. No dense consolidation or air bronchograms. No effusion, edema, or pneumothorax. Cardiac mediastinal silhouettes within normal limits for size. No acute bony abnormality XR/XR chest 1V IMPRESSION: Minimal increased basilar markings more likely reflect component of atelectasis. Early or atypical infectious etiology considered less likely
--- NOTE | ~2022-07-22 | CT_ITS ---
EXAMINATION: CT ELBOW LT W IV CON CLINICAL INFORMATION: Reason for Exam l elbow pain , ivda ?septic COMPARISON: None. TECHNIQUE: Multidetector CT imaging of the left elbow was performed after the administration of 85 mL Omnipaque [address] examination was performed using dose optimization techniques as appropriate, variously including the following: *Automated exposure control *Adjustment of mA and/or kV according to patient size (this includes techniques or standardized protocols for targeted exams where dose is matched to indication/reason for exam; i.e. extremities or head) *Use of iterative reconstruction technique DLP: 113 mGy-cm FINDINGS: No fractures. No periosteal reaction or cortical destruction to suggest osteomyelitis. There is an elbow joint effusion. There is ill-definition of the fat planes between the extensor and flexor musculature of the forearm, without drainable collection identified. No soft tissue gas is present. There is mild subcutaneous fat stranding along the medial upper arm, lateral and posterior to the elbow joint. CT/CT elbow LT w IV con IMPRESSION: * Positive elbow joint effusion. * No associated erosive changes to suggest septic arthropathy or osteomyelitis at this time. * Ill-defined fat planes, likely fluid along the intramuscular fat planes of the proximal anterior forearm. No drainable collection.
[2022-07-22 17:28] VITALS: BP 150/84; BP 170/80; PULSE 110; PULSE 126; RESP 16; TEMP 37.4; O2SAT 97; O2SAT 99; BMI 24.7
--- NOTE | 2022-07-22 17:47 | ED.PSYCH ---
HPI - Psych General Chief Complaint: Psychiatric Symptoms Stated Complaint: SI,HEARING VOICES,A&O PER EMS Time Seen by Provider: 07/22/22 17:46 Source: patient Mode of arrival: EMS Limitations: no limitations History of Present Illness HPI Narrative: Patient is 32 years old with history of anxiety, depression PE, PTSD with opioid use disorder comes here for increased depression with SI with auditory hallucination telling her to kill herself used 2 bags last night patient is homeless in unkept condition noted to have temperature of 102.4 in ER complaining of pain in the left elbow and soft tissue swelling of the right forearm for last few days Related Data Home Medications Medication Instructions Recorded Confirmed clonidine HCl 0.1 mg tablet 0.1 mg PO Q6H PRN anxiety 06/21/21 07/22/22 Previous Rx's Medication Instructions Recorded hydroxyzine HCl 50 mg tablet 100 mg PO QID PRN anxiety #30 tabs 11/04/20 ibuprofen 600 mg tablet 600 mg PO Q8H PRN pain #30 tabs 11/04/20 trazodone 100 mg tablet 100 mg PO BEDTIME PRN sleep #20 11/04/20 tabs trazodone 50 mg tablet 50 mg PO BEDTIME PRN insomnia #30 06/21/21 tabs Allergies Allergy/AdvReac Type Severity Reaction Status Date / Time amoxicillin Allergy Mild Hives Verified 07/22/22 20:08 Review of Systems Review of Systems: Yes all other systems are reviewed and are negative PMFSH Past Medical History Medical History Anxiety Depression Ovarian cyst PTSD (post-traumatic stress disorder) Social History Social History Alcohol intake: current Smoked in Last 30 Days: Yes Use of substances other than those prescribed or required for medical reasons: Yes Substance Use Type: Heroin and Marijuana Substance Use Frequency: Chronic Longstanding Last Used Substance: Hours (ago) Any prior treatment program specific to substance use: No Advance Directives: No Advance Directives Information Provided: No Patient : No Physical Exam Vital Signs: Vital Signs: Last Vital Signs Temp 102.4 F H 07/22/22 21:12 Pulse 98 07/22/22 22:16 Resp 19 07/22/22 22:16 BP 148/80 H 07/22/22 21:12 Pulse Ox 98 07/22/22 22:16 O2 Del Method 07/22/22 22:16 BMI result Body Mass Index 24.7 Appearance: Alert. Oriented X3. No acute distress. Sleepy Eyes: PERRLA, No Nystagmus ENT: Pharynx normal. Oral Mucosa moist Neck: Normal inspection. Neck supple. CVS: Normal heart rate and rhythm. Pulses normal. Respiratory: No respiratory distress. Equal air entry bilateral, no wheezing/rales/rhonchi Abdomen: Soft and nontender. Bowel sounds are present, no mass palpable, no CVA tenderness Skin: Skin warm and dry. Normal skin color. Normal skin turgor. Extremities: No lower extremity edema. No calf tenderness soft tissue swelling right forearm tender left elbow with painful range of movement IVDA track martinez++ psych: Feel depressed with SI no plan Neuro: Oriented X 3. No motor deficit. No sensory deficit.No cerebellar signs , cranial nerves II-XII intact Medications Administered Discontinued Medications Generic Name Dose Route Start Last Admin Trade Name Freq PRN Reason Stop Dose Admin Sodium Chloride 2,000 mls @ 1,000 mls/hr 07/22/22 18:00 07/22/22 20:33 Ns IV 07/22/22 19:59 Infused .Q2H STA Infusion Piperacillin Sod/Tazobactam 50 mls @ 100 mls/hr 07/22/22 18:00 07/22/22 19:17 Sod 3.375 gm/ Sodium Chloride IV 07/22/22 18:29 Infused ONCE ONE Infusion Vancomycin HCl 1,500 mg/ 500 mls @ 333.333 mls/hr 07/22/22 18:15 07/22/22 20:33 Sodium Chloride IV 07/22/22 19:44 Infused ONCE ONE Infusion Iohexol 85 ml 07/23/22 00:25 07/23/22 00:26 Iohexol 350 Mg/Ml 100 Ml Infus..Btl IV 07/23/22 00:26 85 ml ONCE ONE Administration Ketorolac Tromethamine 30 mg 07/22/22 20:28 07/22/22 20:34 Ketorolac Tromethamine 30 Mg/Ml Vial IVPUSH 07/22/22 20:29 30 mg ONCE ONE Administration Oxycodone HCl 10 mg 07/22/22 20:28 07/22/22 20:33 Oxycodone Hcl Immed Release 5 Mg Tablet PO 07/22/22 20:29 10 mg ONCE ONE Administration Medical Decision Making Medical Decision Making [facility] Narrative: Patient IVDA user with depression with suicidal feeling noted to have fever in the ER with leukocytosis normal lactic acid level CT scan of the left elbow showed some effusion also patient has soft tissues induration in the right forarm patient refuses I and D of the right forearm lesion patient high risk of septic arthritis will admit patient for IV antibiotics ortho to evaluate patient further. Patient received IV fluids more than 30 cc/kilogram and IV antibiotics Zosyn and vanco for possible bacteremia/sepsis patient is not in septic shock Differential Diagnosis Bacteremia/septic joint/depression/SI/substance abuse Consult Healthcare Provider Management of the patient was discussed with: Hospitalist Lab Data [facility] Lab Attestation statement: I reviewed the patient's lab results. 07/22/22 18:32 07/22/22 18:32 Labs: Lab Results 07/22/22 07/22/22 07/22/22 Range/Units 18:32 18:32 18:32 WBC 15.3 H (4.8-10.8) X10*3/uL RBC 3.63 L (4.20-5.50) X10*6/uL Hgb 9.6 L D (12.0-16.0) g/dl Hct 30.0 L (37.0-47.0) % MCV 82.6 (80.0-98.0) fL MCH 26.4 L (27.0-33.0) pg MCHC 32.0 (31.0-35.0) g/dl RDW 14.6 (11.0-16.0) % Plt Count 456 H D (160-400) X10*3/uL MPV 8.8 L (9.4-12.3) fL Immature Gran % (Auto) 0.5 H (0.0-0.4) % Neut % (Auto) 73.4 H (45-73) % Lymph % (Auto) 16.8 L (20-40) % Jerome % (Auto) 8.8 (2-11) % Eos % (Auto) 0.1 (0-4) % Baso % (Auto) 0.4 (0-2) % Lymph # (Auto) 2.6 (1.2-4.9) X10*3/uL Jerome # (Auto) 1.3 H (0.1-1.2) X10*3/uL Eos # (Auto) 0.0 (0.0-0.4) X10*3/uL Baso # (Auto) 0.1 (0.0-0.2) X10*3/uL Abs Immat Gran (auto) 0.08 H (0.00-0.03) X10*3/uL Absolute Neuts (auto) 11.2 H (2.0-8.3) x10*3/uL Absolute Nucleated RBC 0.000 (0.0-0.012) X10*3/uL Nucleated RBC % (auto) 0.0 (0.0-0.2) /100WBC Sodium 134 L (135-145) mmol/L Potassium 4.0 (3.3-5.1) mmol/L Chloride 97 (96-108) mmol/L Carbon Dioxide 26 (22-29) mmol/L Anion Gap 15 (12-20) BUN 10 (9-16) mg/dL Creatinine 0.65 (0.5-1.4) mg/dL Estim Creat Clear Calc 108.0 Estimated GFR > 60 Random Glucose 150 H (60-115) mg/dL Lactic Acid 1.5 (0.5-2.0) mmol/L Calcium 8.4 D (8.4-10.2) mg/dL Magnesium 2.0 (1.6-2.6) mg/dL Total Bilirubin 0.4 (0.0-1.0) mg/dL AST 19 (5-31) U/L ALT 12 (0-31) U/L Alkaline Phosphatase 76 (39-117) U/L Total Protein 6.6 (6.5-8.0) g/dL Albumin 3.1 L (3.5-5.0) g/dL Ethyl Alcohol < 10 mg/dL COVID-19 (NILAY) (Negative) COVID-19 Clin Com 07/22/22 Range/Units 20:34 WBC (4.8-10.8) X10*3/uL RBC (4.20-5.50) X10*6/uL Hgb (12.0-16.0) g/dl Hct (37.0-47.0) % MCV (80.0-98.0) fL MCH (27.0-33.0) pg MCHC (31.0-35.0) g/dl RDW (11.0-16.0) % Plt Count (160-400) X10*3/uL MPV (9.4-12.3) fL Immature Gran % (Auto) (0.0-0.4) % Neut % (Auto) (45-73) % Lymph % (Auto) (20-40) % Jerome % (Auto) (2-11) % Eos % (Auto) (0-4) % Baso % (Auto) (0-2) % Lymph # (Auto) (1.2-4.9) X10*3/uL Jerome # (Auto) (0.1-1.2) X10*3/uL Eos # (Auto) (0.0-0.4) X10*3/uL Baso # (Auto) (0.0-0.2) X10*3/uL Abs Immat Gran (auto) (0.00-0.03) X10*3/uL Absolute Neuts (auto) (2.0-8.3) x10*3/uL Absolute Nucleated RBC (0.0-0.012) X10*3/uL Nucleated RBC % (auto) (0.0-0.2) /100WBC Sodium (135-145) mmol/L Potassium (3.3-5.1) mmol/L Chloride (96-108) mmol/L Carbon Dioxide (22-29) mmol/L Anion Gap (12-20) BUN (9-16) mg/dL Creatinine (0.5-1.4) mg/dL Estim Creat Clear Calc Estimated GFR Random Glucose (60-115) mg/dL Lactic Acid (0.5-2.0) mmol/L Calcium (8.4-10.2) mg/dL Magnesium (1.6-2.6) mg/dL Total Bilirubin (0.0-1.0) mg/dL AST (5-31) U/L ALT (0-31) U/L Alkaline Phosphatase (39-117) U/L Total Protein (6.5-8.0) g/dL Albumin (3.5-5.0) g/dL Ethyl Alcohol mg/dL COVID-19 (NILAY) Negative (Negative) COVID-19 Clin Com See Note Discharge Plan Discharge Clinical Impression: Opioid use disorder, severe, dependence, Suicidal ideation, Depression, Effusion of elbow joint, left, Leukocytosis Patient Disposition: Admitted As Inpatient Interventions: Milton-Suicide Risk Severity Scale Last Done: 07/22/22 17:29
[2022-07-22 17:51] VITALS: BP 145/80; PULSE 111; RESP 16; TEMP 39.1; O2SAT 98
[2022-07-22 18:00] VITALS: BP 135/70; PULSE 115; RESP 16; TEMP 37.9; O2SAT 97
--- NOTE | 2022-07-22 18:17 | PC.NURSE ---
pt refusing IV at this time, pt states that we will not get an IV because I am dehydrated . is aware
[2022-07-22] MEDS: 0.9 % Sodium Chloride 2,000 ML 1000 ML IV (18:37)
[2022-07-22 18:40] LABS: Basophils Absolute Auto 0.1 X10*3/uL (0.0-0.2); Basophils Percent Auto 0.4 % (0-2); Eosinophils Percent Auto 0.1 % (0-4); Hemoglobin 9.6 g/dl (12.0-16.0); Imm Gran Abs Auto 0.08 X10*3/uL (0.00-0.03); Imm Gran Pct Auto 0.5 % (0.0-0.4); Lymphocytes Absolute Auto 2.6 X10*3/uL (1.2-4.9); Lymphocytes Percent Auto 16.8 % (20-40); MANUAL DIFF FLAG NO; Mean Corpuscular Hemoglobin 26.4 pg (27.0-33.0); Mean Corpuscular Volume 82.6 fL (80.0-98.0); Mean Platelet Volume 8.8 fL (9.4-12.3); Monocytes Absolute Auto 1.3 X10*3/uL (0.1-1.2); Monocytes Percent Auto 8.8 % (2-11); Neutrophils Absolute Auto 11.2 x10*3/uL (2.0-8.3); Neutrophils Percent Auto 73.4 % (45-73); Platelet Count 456 X10*3/uL (160-400); Red Blood Count 3.63 X10*6/uL (4.20-5.50); Red Cell Distribution Width 14.6 % (11.0-16.0); White Blood Count 15.3 X10*3/uL (4.8-10.8)
[2022-07-22] MEDS: Piperacillin Sodium/Tazobactam 3.375 GM in 0.9 % Sodium Chloride 50 ML IV (18:45)
[2022-07-22 18:53] LABS: Lactic Acid 1.5 mmol/L (0.5-2.0)
[2022-07-22 19:00] LABS: Alanine Aminotransferase 12 U/L (0-31); Albumin Level 3.1 g/dL (3.5-5.0); Alkaline Phosphatase 76 U/L (39-117); Anion Gap 15 (12-20); Aspartate Amino Transferase 19 U/L (5-31); Bilirubin Total 0.4 mg/dL (0.0-1.0); Blood Urea Nitrogen 10 mg/dL (9-16); Calcium 8.4 mg/dL (8.4-10.2); Carbon Dioxide 26 mmol/L (22-29); Chloride 97 mmol/L (96-108); Estimated Glomerular Filt Rate > 60; Ethanol < 10 mg/dL; Glucose Random 150 mg/dL (60-115); Sodium 134 mmol/L (135-145); Total Protein 6.6 g/dL (6.5-8.0)
[2022-07-22] MEDS: vancomycin HCL 1,500 MG in 0.9 % Sodium Chloride 500 ML 333.33 MG IV (19:10)
--- NOTE | 2022-07-22 19:36 | PC.NURSE ---
pt initially refusing IV, Dr. Capps in to place EJ. Blood work taken from EJ. Fluids and abx administered per AUG. Pt requesting something for pain
[2022-07-22] MEDS: oxyCODONE HCl Immed Release 5 MG TABLET 10 MG PO (20:33)
[2022-07-22] MEDS: Ketorolac Tromethamine 30 MG/ML VIAL IVPUSH (20:34)
[2022-07-22 20:39] VITALS: BP 152/83; PULSE 114; RESP 20; TEMP 39.4; O2SAT 97
--- NOTE | 2022-07-22 20:48 | PC.NURSE ---
Pt resting on stretcher, reports left arm pain. MD aware. Pain medications administered per MAR. Pt received all fluids and abx per AUG. Blood pressure remains stable, temp is increased, MD is aware
[2022-07-22 21:06] LABS: COVID-19 Test Negative (Negative); IDNOW Serial# 55D5AD1C
[2022-07-22 21:12] VITALS: BP 148/80; PULSE 128; RESP 17; TEMP 39.1; O2SAT 99
[2022-07-22 22:16] VITALS: PULSE 98; RESP 19; O2SAT 98
--- NOTE | 2022-07-22 22:18 | PC.NURSE ---
Dr. Crane in to talk with pt at this time
--- NOTE | 2022-07-22 23:04 | PC.NURSE ---
pt sleeping at this time, respirations are even and unlabored, no apparent distress
[2022-07-23] MEDS: iohexoL 350 MG/ML 100 ML INFUS..BTL 85 ML IV (00:26)
--- NOTE | 2022-07-23 01:18 | PC.NURSE ---
late entry: pts belongings placed in pod closet
--- NOTE | 2022-07-23 02:06 | PM.IMHP ---
History of Present Illness Date of Service: 07/23/22 Chief Complaint: detox, SI 32-year-old female with past medical history of opioid use disorder, presents to the hospital with increased depression and suicidal ideation, patient also reported auditory hallucination telling her to kill herself. On my interview patient is agitated, not given me history, does not want me to touch her or talk to her. I am unable to get review of system from patient On arrival to the ED patient found to have a temperature of 102.4 degrees, heart rate in the 110s, stable blood pressure, 98% on room air Labs are significant for WBC count of 15.3, hemoglobin of 9.6, hematocrit of 30, left shift, ESR of 65, sodium of 134, CRP of 25.36, patient also has left elbow swelling and pain, CT of the left elbow shows positive elbow joint effusion, no associated erosive changes to suggest septic arthropathy or osteomyelitis at this time, ill-defined fat planes likely fluid along the intramuscular fat planes of the proximal anterior forearm, no drainable collection patient started on IV antibiotics and will be admitted for further management Review of Systems Review of Systems: Yes all other systems are reviewed and are negative [facility] Medical History (Updated 07/23/22 @ 07:01 by Jarad Crane MD) Anxiety Depression Ovarian cyst PTSD (post-traumatic stress disorder) Social History Alcohol intake: current Patient Tobacco Use Status: Current everyday Tobacco user Smoked in Last 30 Days: Yes Use of substances other than those prescribed or required for medical reasons: Yes Substance Use Type: Heroin and Marijuana Substance Use Frequency: Chronic Longstanding Last Used Substance: Hours (ago) Any prior treatment program specific to substance use: No Advance Directives: No Advance Directives Information Provided: No Nutrition Risks: No Nutritional Risk Patient : No Meds Allergies Allergy/AdvReac Type Severity Reaction Status Date / Time amoxicillin Allergy Mild Hives Verified 07/22/22 20:08 Home Medications Medication Instructions Recorded Confirmed Last Taken Type clonidine HCl 0.1 mg tablet 0.1 mg PO Q6H PRN anxiety 06/21/21 07/22/22 Unknown History Physical Exam Vital Signs and Narrative: Vital Signs: Last Vital Signs Temp 102.4 F H 07/22/22 21:12 Pulse 98 07/22/22 22:16 Resp 19 07/22/22 22:16 BP 148/80 H 07/22/22 21:12 Pulse Ox 98 07/22/22 22:16 O2 Del Method 07/22/22 22:16 BMI result Body Mass Index 24.7 Const: Other: Patient attended but wakes up to verbal command, cooperative, exam is limited as patient does not want me to examine her, she pulls away or try to examine her extremities. General: no acute distress Eyes: General: appearance normal, both eyes and all related structures Resp: Effort & Inspection: normal respiratory effort Auscultation: clear to auscultation bilaterally Cardio: Rate: regular rate Rhythm: regular rhythm GI: Palpation (GI): Soft to palpation Auscultation: normal bowel sounds Skin: General skin exam: no rashes or lesions noted Neuro: Cognition (Neuro): normal cognition Extrem: Other: right arm has what appears to be an ulcer at the upper forearm medially, there is warmth, erythema, significant tenderness as she poles when I try to examine it Left arm with effusion of the elbow, tender Results Labs 07/22/22 18:32 07/22/22 18:32 Labs: Laboratory Results - last 24 hr 07/22/22 07/22/22 07/22/22 18:32 18:32 18:32 MCV 82.6 MCH 26.4 L MCHC 32.0 RDW 14.6 Plt Count 456 H D MPV 8.8 L Immature Gran % (Auto) 0.5 H Neut % (Auto) 73.4 H Lymph % (Auto) 16.8 L [place] % (Auto) 8.8 Eos % (Auto) 0.1 Baso % (Auto) 0.4 Lymph # (Auto) 2.6 [place] # (Auto) 1.3 H Eos # (Auto) 0.0 Baso # (Auto) 0.1 Abs Immat Gran (auto) 0.08 H Absolute Neuts (auto) 11.2 H Absolute Nucleated RBC 0.000 Nucleated RBC % (auto) 0.0 Anion Gap 15 Estim Creat Clear Calc 108.0 Estimated GFR > 60 Random Glucose 150 H Lactic Acid 1.5 Calcium 8.4 D Magnesium 2.0 Total Bilirubin 0.4 AST 19 ALT 12 Alkaline Phosphatase 76 Total Protein 6.6 Albumin 3.1 L Ethyl Alcohol < 10 COVID-19 ([facility]ILAY) COVID-19 Clin Com 07/22/22 20:34 MCV MCH MCHC RDW Plt Count MPV Immature Gran % (Auto) Neut % (Auto) Lymph % (Auto) [place] % (Auto) Eos % (Auto) Baso % (Auto) Lymph # (Auto) [place] # (Auto) Eos # (Auto) Baso # (Auto) Abs Immat Gran (auto) Absolute Neuts (auto) Absolute Nucleated RBC Nucleated RBC % (auto) Anion Gap Estim Creat Clear Calc Estimated GFR Random Glucose Lactic Acid Calcium Magnesium Total Bilirubin AST ALT Alkaline Phosphatase Total Protein Albumin Ethyl Alcohol COVID-19 (NILAY) Negative COVID-19 Clin Com See Note Imaging Radiologist's Impressions: Impressions Chest X-Ray 07/22/22 22:29 IMPRESSION: Minimal increased basilar markings more likely reflect component of atelectasis. Early or atypical infectious etiology considered less likely Elbow CT 07/23/22 00:30 IMPRESSION: * Positive elbow joint effusion. * No associated erosive changes to suggest septic arthropathy or osteomyelitis at this time. * Ill-defined fat planes, likely fluid along the intramuscular fat planes of the proximal anterior forearm. No drainable collection. Assessment and Plan (1) Sepsis: Status: Acute (2) Cellulitis of right forearm: Status: Acute (3) Effusion of elbow joint, left: Status: Acute (4) IVDU (intravenous drug user): Status: Acute (5) Suicidal ideation: Status: Acute (6) Opioid use disorder, severe, dependence: Status: Acute Plan 32-year-old female with past medical history of IV drug abuse presents to the hospital with suicidal ideation and hallucination, found to have sepsis # sepsis - likely multifactor in the setting of cellulitis, as well as left elbow septic arthritis - left whole CTA shows no evidence of septic arthropathy or osteomyelitis, right forearm with cellulitic changes - will treat with IV antibiotics - follow cultures - infectious disease consult # cellulitis of right forearm - erythema, warmth, tenderness, edema - likely at the site of injection - treat with IV antibiotics - follow cultures # left elbow effusion - likely septic arthritis - orthopedic surgery consulted - IV antibiotics - follow cultures # suicidal ideation - psych team consulted - sitter at bedside # heavy drug use /opioid use disorder - care team consult DVT PPX: lovenox given patient's sepsis requiring IV antibiotics patient required minimum 2 nights inpatient hospital stay Time Spent With Patient Time: Total time managing care of this patient today ____ minutes. Quality Stroke Does the patient have a stroke diagnosis?: No VTE Prior VTE?: No VTE Risk Level:: Medical - moderate - high VTE Device Contraindication: Treatment Not Indicated VTE Drug Contraindication: N/A - Med Ordered
[2022-07-23 02:16] VITALS: BP 123/54; PULSE 107; RESP 20; O2SAT 98
[2022-07-23 02:29] LABS: C Reactive Protein 25.36 mg/dL (< or = 0.50)
[2022-07-23] MEDS: Piperacillin Sodium/Tazobactam 3.375 GM in 0.9 % Sodium Chloride 50 ML IV ×4 (02:47→20:56)
[2022-07-23] MEDS: Enoxaparin Sodium 40 MG/0.4 ML SYRINGE SUBCUT (02:48)
[2022-07-23 02:55] LABS: Erythrocyte Sedimentation Rate 65 MM/HR (0-20)
[2022-07-23 06:37] LABS: MANUAL DIFF FLAG NO
[2022-07-23 06:49] LABS: Basophils Percent Auto 0.3 % (0-2); Eosinophils Absolute Auto 0.1 X10*3/uL (0.0-0.4); Hematocrit 30.4 % (37.0-47.0); Hemoglobin 9.4 g/dl (12.0-16.0); Imm Gran Abs Auto 0.05 X10*3/uL (0.00-0.03); Imm Gran Pct Auto 0.4 % (0.0-0.4); Lymphocytes Absolute Auto 2.6 X10*3/uL (1.2-4.9); Lymphocytes Percent Auto 22.9 % (20-40); Mean Corpuscular HGB Conc 30.9 g/dl (31.0-35.0); Mean Corpuscular Hemoglobin 25.9 pg (27.0-33.0); Mean Corpuscular Volume 83.7 fL (80.0-98.0); Mean Platelet Volume 9.1 fL (9.4-12.3); Monocytes Absolute Auto 1.2 X10*3/uL (0.1-1.2); Monocytes Percent Auto 10.3 % (2-11); Neutrophils Absolute Auto 7.5 x10*3/uL (2.0-8.3); Neutrophils Percent Auto 65.1 % (45-73); Platelet Count 421 X10*3/uL (160-400); Red Blood Count 3.63 X10*6/uL (4.20-5.50); Red Cell Distribution Width 14.8 % (11.0-16.0); White Blood Count 11.5 X10*3/uL (4.8-10.8)
--- NOTE | 2022-07-23 07:14 | PHA.MEDREC ---
Pharmacy Consult ? Medication Reconciliation Pharmacy has completed the medication reconciliation. Reviewed med rec done by nursing
--- NOTE | 2022-07-23 07:15 | PHA.PROG ---
Admission Date/Time: July 23, 2022 02:05 Indication: Skin Weight in k.235 kg Adjusted body weight in Kg: [place] body weight in Kg: Obesity Dosing Indication % IBW: Serum Creatinine - Last 168 Hours 07/22/22 18:32 Creatinine 0.65 Estimated CrCl and GFR - Last 168 Hours 07/22/22 18:32 Estim Creat Clear Calc 108.0 Estimated GFR > 60 Vancomycin Loading Dose: 1500mg X 1 Current Vancomycin Dosing Regimen: 1000mg Q12H Vancomycin Monitoring using AUC goal of 400 - 600 range with trough as surrogate marker: 439mg/L Date and Time for next Vancomycin Level to be drawn: 07/24/22 @0600 Pharmacist Comments on Vancomycin Plan: Vancomycin dosing will take advantage of [employer] as a clinical decision support tool that uses Bayesian modeling to calculate individual patient's pharmacokinetic parameters and forecast the patient's drug concentration time course with the target goal AUC 24 range of 400 - 600 mg/L/hr.
[2022-07-23 07:24] LABS: Anion Gap 12 (12-20); Blood Urea Nitrogen 8 mg/dL (9-16); Calcium 7.9 mg/dL (8.4-10.2); Carbon Dioxide 25 mmol/L (22-29); Chloride 102 mmol/L (96-108); Creatinine Clr Calc Pharmacy 103.2; Estimated Glomerular Filt Rate > 60; Glucose Random 95 mg/dL (60-115); Potassium 3.9 mmol/L (3.3-5.1); Sodium 135 mmol/L (135-145)
--- NOTE | 2022-07-23 07:36 | PC.NURSE ---
Patient sleeping easily aroused no respiratory distress noted vague suicidal ideation with no plan continues to be watch for safety. AO x 4 has difficulty moving LUE ongoing issue. Agitation noted is easily redirected deniz CTM
[2022-07-23] MEDS: Acetaminophen 325 MG TABLET 650 MG PO ×2 (07:54→17:07)
--- NOTE | 2022-07-23 08:01 | MHC.CARE ---
Please consult CARE Team when medically cleared
--- NOTE | 2022-07-23 08:13 | PC.NURSE ---
Inpatient MD notified patient request for additional pain med
[2022-07-23] MEDS: vancomycin HCL 1,000 MG in 0.9 % Sodium Chloride 250 ML 270 MG IV ×2 (08:39→22:01)
--- NOTE | 2022-07-23 10:30 | PM.CNOR ---
History of Present Illness HPI Consult date: 07/23/22 Chief complaint: ivdu, sepsis, SI Narrative: Ms. Cheung is a 32 year old female with history of anxiety, depression PE, PTSD with opioid use disorder comes here for increased depression with SI with auditory hallucination telling her to kill herself as well as left elbow pain. Pain is also accompanied by edema and erythema for the past few days. She reports that she used 2 bags?of heroine last night. She is reportedly homeless and is in an unkept condition. In the ED she was noted to have temperature of 102.4 in ER. Of note, the patient was sleeping and did not want to engage in many questions throughout the interview. Therefore, a combination of the patients responses as well as the history from the ED note was used to obtain the HPI. Review of Systems Review of Systems: Yes all other systems are reviewed and are negative PMFSH Past Medical History Medical History Anxiety Depression Ovarian cyst PTSD (post-traumatic stress disorder) Social History Social History Housing: Homeless Alcohol intake: current Patient Tobacco Use Status: Current everyday Tobacco user Tobacco use type: Cigarette Cigarette Packs Per Day: 1 Cigarettes Per Day: 20.0 Substance Use Type: Heroin and Marijuana Meds Allergies Allergy/AdvReac Type Severity Reaction Status Date / Time amoxicillin Allergy Mild Hives Verified 07/22/22 20:08 Active Medications: Current Medications Acetaminophen (Acetaminophen 325 Mg Tablet) 650 mg PO Q6H PRN PRN Reason: Pain, Mild (Pain Scale 1-3) Last Admin: 07/23/22 17:07 Dose: 650 mg Enoxaparin Sodium (Enoxaparin Sodium 40 Mg/0.4 Ml Syringe) 40 mg SUBCUT Q24H [facility] Last Admin: 07/23/22 02:48 Dose: 40 mg Piperacillin Sod/Tazobactam (Sod 3.375 gm/ Sodium Chloride) 50 mls @ 100 mls/hr IV Q6H [facility] Last Infusion: 07/23/22 14:47 Dose: Infused Vancomycin HCl 1,000 mg/ (Sodium Chloride) 270 mls @ 270 mls/hr IV Q12H [facility] Last Infusion: 07/23/22 09:47 Dose: Infused Naloxone HCl (Naloxone Hcl Nasal 4 Mg [place]) 4 mg NOSTRILALT ONCE PRN PRN Reason: Opiate Reversal Ondansetron HCl (Ondansetron Hcl 4 Mg/2 Ml Vial) 4 mg IVPUSH Q8H PRN PRN Reason: Nausea and Vomiting Oxycodone HCl (Oxycodone Hcl Immed Release 5 Mg Tablet) 10 mg PO Q4H PRN PRN Reason: Pain, Severe (Pain Scale 7-10) Last Admin: 07/23/22 18:01 Dose: 10 mg Pharmacy Consult (Consult Rx Vancomycin Dosing) 1 each MISCELLANE DAILY PRN PRN Reason: Consult order Sodium Chloride (0.9 % Sodium Chloride Flush 3 Ml Syringe) 3 ml IVFLUSH QSHIFT [facility] Last Admin: 07/23/22 16:10 Dose: 3 ml Home Medications Medication Instructions Recorded Confirmed Last Taken Type clonidine HCl 0.1 mg tablet 0.1 mg PO Q6H PRN anxiety 06/21/21 07/22/22 Unknown History Physical Exam Vital Signs: Vital Signs: Last Vital Signs Temp 99.7 F 07/23/22 16:53 Pulse 85 07/23/22 16:53 Resp 18 07/23/22 16:53 BP 117/68 07/23/22 16:53 Pulse Ox 98 07/23/22 16:53 O2 Del Method 07/23/22 16:53 BMI result Body Mass Index 24.5 Const: General: cooperative, healthy appearing and no acute distress Resp: Effort & Inspection: normal respiratory effort and able to speak in complete sentences Cardio: Rate: regular rate Peripheral pulses: Peripheral pulses 2+ throughout GI: Palpation (GI): Soft to palpation Skin: Lesions: no lesions Rashes: no rashes Extrem: Other: Left forearm and hand track martinez noted. Difficulty with elbow and hand ROM. Able to flex and extend but minimally due to pain. No evidence of flexor tenosynovitis. No specific area of fluctuance or abscess. NVI. Results Labs 07/23/22 06:10 07/23/22 06:10 Labs: Abnormal lab results 07/22/22 07/22/22 07/23/22 Range/Units 18:32 18:32 06:10 WBC 11.5 H (4.8-10.8) X10*3/uL RBC 3.63 L (4.20-5.50) X10*6/uL Hgb 9.4 L (12.0-16.0) g/dl Hct 30.4 L (37.0-47.0) % MCH 25.9 L (27.0-33.0) pg MCHC 30.9 L (31.0-35.0) g/dl Plt Count 421 H (160-400) X10*3/uL MPV 9.1 L (9.4-12.3) fL Abs Immat Gran (auto) 0.05 H (0.00-0.03) X10*3/uL ESR 65 H (0-20) MM/HR Sodium 134 L (135-145) mmol/L BUN (9-16) mg/dL Random Glucose 150 H (60-115) mg/dL Calcium (8.4-10.2) mg/dL C-Reactive Protein 25.36 H (< or = 0.50) mg/dL Albumin 3.1 L (3.5-5.0) g/dL 07/23/22 Range/Units 06:10 WBC (4.8-10.8) X10*3/uL RBC (4.20-5.50) X10*6/uL Hgb (12.0-16.0) g/dl Hct (37.0-47.0) % MCH (27.0-33.0) pg MCHC (31.0-35.0) g/dl Plt Count (160-400) X10*3/uL MPV (9.4-12.3) fL Abs Immat Gran (auto) (0.00-0.03) X10*3/uL ESR (0-20) MM/HR Sodium (135-145) mmol/L BUN 8 L (9-16) mg/dL Random Glucose (60-115) mg/dL Calcium 7.9 L (8.4-10.2) mg/dL C-Reactive Protein (< or = 0.50) mg/dL Albumin (3.5-5.0) g/dL H & H 07/22/22 07/23/22 Range/Units 18:32 06:10 Hgb 9.6 L D 9.4 L (12.0-16.0) g/dl Hct 30.0 L 30.4 L (37.0-47.0) % All other labs normal. Assessment and Plan (1) Cellulitis of right forearm: Status: Acute (2) Sepsis: Status: Acute (3) IVDU (intravenous drug user): Status: Acute (4) Suicidal ideation: Status: Acute (5) Depression: Status: Acute (6) Effusion of elbow joint, left: Status: Acute (7) Leukocytosis: Status: Acute (8) Opioid use disorder, severe, dependence: Status: Acute Plan No area of abscess noted at this time Cont. IV abx Pain management as necessary Will continue to follow CT scan of the left elbow reviewed: IMPRESSION: Positive elbow joint effusion. No associated erosive changes to suggest septic arthropathy or osteomyelitis at this time. Ill-defined fat planes, likely fluid along the intramuscular fat planes of the proximal anterior forearm. No drainable collection. Time Spent With Patient Time: Total time managing care of this patient today ____ minutes. Procedures Date of Service Date of Service: 07/23/22
[2022-07-23 11:00] VITALS: BP 124/45; PULSE 77; RESP 18; O2SAT 97
[2022-07-23] MEDS: methADONE HCl 20 MG/2 ML ORAL.CONC PO (11:01)
--- NOTE | 2022-07-23 12:43 | PC.NURSE ---
Patient sleeping no distress noted remains watch for vague SI
--- NOTE | 2022-07-23 13:09 | PC.NURSE ---
Right EJ removed earlier by patient, replaced with 22 right hand patent flushes with ease with good blood return will CTM
--- NOTE | 2022-07-23 14:05 | MHC.RECOVRN ---
Addendum entered by Kathleen Mitchell RN 07/23/22 15:17: Patient reports has been on Methadone maintenance in the past, patient states was on it for about 2 months, found it somewhat helpful, patient reports was taking daily dose of 100mg, last dose approximately one month ago. Original Note: This automatic typewriter inspector met with patient after receiving addiction consult, patient was in bed, eating ice cream, resting comfortably. Patient reports daily use of CRACK/KATHE and heroin, pt reports IV use of 2 bundles daily heroin and could not specify daily amount of IV crack/kathe use. 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 Patient reports has been through treatment in the past, all levels of care, ATS, CSS, TSS. Patient states would be interested in treatment after medically stable. Patient states mental health is primary concern currently. Patient states would like psych evaluation. Patient requested to rest, as patient just received methadone dose for withdrawals. This automatic typewriter inspector to follow up to obtain more information from patient.
[2022-07-23] MEDS: oxyCODONE HCl Immed Release 5 MG TABLET PO (14:18)
[2022-07-23] MEDS: 0.9 % Sodium Chloride Flush 3 ML SYRINGE IVFLUSH ×2 (16:10→23:12)
[2022-07-23 16:52] VITALS: BMI 24.5
[2022-07-23 16:53] VITALS: BP 117/68; PULSE 85; RESP 18; TEMP 37.6; O2SAT 98
[2022-07-23] MEDS: oxyCODONE HCl Immed Release 5 MG TABLET 10 MG PO ×2 (18:01→23:10)
[2022-07-23 19:39] VITALS: BP 109/58; PULSE 89; RESP 18; TEMP 37.1; O2SAT 98
--- NOTE | 2022-07-24 03:27 | PC.NURSE ---
Patient lost iv access. New iv start unsuccessful. Patient refusing to have anyone else try. Unable to give 0215 norris zosyn. Patient also refused bladder scan, no voids since arrival to floor. Last bladder scan around 1647 100ml per day nurse. MD Rosa Maria notified. Sitter at bedside
[2022-07-24] MEDS: oxyCODONE HCl Immed Release 5 MG TABLET 10 MG PO ×3 (03:51→22:03)
[2022-07-24 03:57] VITALS: BP 136/70; PULSE 93; RESP 18; TEMP 37.1; O2SAT 98
--- NOTE | 2022-07-24 04:34 | PM.EVENT ---
Event Note Date of Service: 07/24/22 Event Note: Lost IV long, refusing to allow edema IV placement attempts. Patient understands that she is on IV antibiotics but refuses to lab nurses to place IV as multiple attempts have been unsuccessful. Time Spent With Patient Time: Total time managing care of this patient today ____ minutes.
[2022-07-24 06:44] LABS: Vancomycin Trough 4.6 mcg/mL (10.0-20.0)
[2022-07-24 06:45] LABS: Creatinine Clr Calc Pharmacy 132.5; Estimated Glomerular Filt Rate > 60
--- NOTE | 2022-07-24 07:39 | PM.PNORT ---
Subjective Subjective Date of Service: 07/24/22 Interval history: Patient is resting in bed comfortably. Overnight IV access was lost and patient refused another placement. Reports that she is not having any improvement of symptoms of the left upper extremity. Was uncooperative and unable to obtain any additional information. Physical Exam Vital Signs: Vital Signs: Last Vital Signs Temp 98.7 F 07/24/22 03:57 Pulse 93 07/24/22 03:57 Resp 18 07/24/22 03:57 BP 136/70 07/24/22 03:57 Pulse Ox 98 07/24/22 03:57 O2 Del Method 07/24/22 03:57 BMI result Body Mass Index 24.5 Const: General: cooperative, healthy appearing and no acute distress Resp: Effort & Inspection: normal respiratory effort and able to speak in complete sentences Cardio: Rate: regular rate Peripheral pulses: Peripheral pulses 2+ throughout GI: Palpation (GI): Soft to palpation Skin: Lesions: no lesions Rashes: no rashes Extrem: Other: Left forearm and hand track martinez noted. unwilling to allow for examination. Would not range the elbow. Patient was seen moving all digits. Procedures Date of Service Date of Service: 07/24/22 Progress Note: A&P Assessment and plan (1) Cellulitis of right forearm: Status: Acute Assessment and Plan: No area of abscess noted at this time based off of CT scan - However no exam was allowed by the patient this morning. Cont. IV abx - Discussed the importance of IV access and will continue to have nursing ask the patient Pain management as necessary Please reconsult if abscess forms for surgical intervention. CT scan of the left elbow reviewed: IMPRESSION: Positive elbow joint effusion. No associated erosive changes to suggest septic arthropathy or osteomyelitis at this time. Ill-defined fat planes, likely fluid along the intramuscular fat planes of the proximal anterior forearm. No drainable collection. (2) Sepsis: Status: Acute (3) IVDU (intravenous drug user): Status: Acute (4) Suicidal ideation: Status: Acute (5) Effusion of elbow joint, left: Status: Acute (6) Opioid use disorder, severe, dependence: Status: Acute (7) Leukocytosis: Status: Acute (8) Depression: Status: Acute Time Spent With Patient Time: Total time managing care of this patient today ____ minutes. Quality Stroke Does the patient have a stroke diagnosis?: No VTE Prior VTE?: No VTE Risk Level:: Medical - moderate - high VTE Device Contraindication: Treatment Not Indicated VTE Drug Contraindication: N/A - Med Ordered
--- NOTE | 2022-07-24 07:47 | HE.PHANOTE ---
Vancomycin Dosing Level 4.6 today. Will increase dose to 1250 mg Q8H. New Expected AUC 496 with a trough of 11.4. Next level is schedule for 07/25 2 0600. Pharmacy will continue to monitor renal function. Shona Davies, CarolyneD
[2022-07-24 07:51] VITALS: BP 136/70; PULSE 94; RESP 20; TEMP 36.8; O2SAT 96
[2022-07-24] MEDS: methADONE HCl 20 MG/2 ML ORAL.CONC 30 MG PO (09:38)
--- NOTE | 2022-07-24 10:55 | MHC.CM.PN ---
pt has a sitter states she lives alone is covid vax x 3 needs a ride home when dcd pt dc plan by care team
[2022-07-24 11:36] VITALS: BP 120/67; PULSE 93; RESP 20; TEMP 37.2; O2SAT 98
[2022-07-24 11:42] LABS: Amphetamine Screen Urine Not Detected (Not Detect); Barbiturates, Urine Not Detected (Not Detect); Benzodiazepines Screen Urine Not Detected (Not Detect); Cannabinoid Screen Urine Not Detected (Not Detect); Cocaine Screen Urine POSITIVE (Not Detect); Fentanyl, urine Not Detected (Not Detect); Opiate Screen Urine POSITIVE (Not Detect); Phencyclidine Screen Urine Not Detected (Not Detect)
--- NOTE | 2022-07-24 13:40 | P.PNIM_ITS ---
Subjective Subjective Date of Service: 07/25/22 Interval History: Complaining of generalize pain due to withdrawal, no fevers in last 24 hours, lost IV line this morning, new IV line placed later this morning, denies nausea, vomiting and diarrhea. Review of Systems Review of Systems: Yes all other systems are reviewed and are negative Physical Exam Vital Signs: Vital Signs: Last Vital Signs Temp 98.9 F 07/24/22 11:36 Pulse 93 07/24/22 11:36 Resp 20 07/24/22 11:36 BP 120/67 07/24/22 11:36 Pulse Ox 98 07/24/22 11:36 O2 Del Method 07/24/22 11:36 BMI result Body Mass Index 24.5 Const: Other: General somnolent but arousable, in no acute distress. Neck supple CVS regular rate rhythm, Respiratory lungs clear to auscultation, no respiratory distress, no wheeze, no rhonchi. Gastrointestinal abdomen soft, nontender, bowel sounds audible Extremities lower extremity, no edema. Neuro nonfocal , speech clear. Right upper extremity small ulcer at upper forearm with warmth, less erythema , persistent tenderness . Left elbow swelling and tenderness, no redness, no induration Objective Data Active Medications Acetaminophen (Acetaminophen 325 Mg Tablet) 650 mg PO Q6H PRN PRN Reason: Pain, Mild (Pain Scale 1-3) Last Admin: 07/23/22 17:07 Dose: 650 mg Documented By: BEREKET Enoxaparin Sodium (Enoxaparin Sodium 40 Mg/0.4 Ml Syringe) 40 mg SUBCUT Q24H [facility] Last Admin: 07/24/22 02:15 Dose: Not Given Documented By: SY Non-Admin Reason: Patient Refused Piperacillin Sod/Tazobactam (Sod 3.375 gm/ Sodium Chloride) 50 mls @ 100 mls/hr IV Q6H [facility] Last Admin: 07/24/22 12:07 Dose: Not Given Documented By: JUAN J Non-Admin Reason: No Access Vancomycin HCl 1,250 mg/ (Sodium Chloride) 250 mls @ 166.667 mls/hr IV Q8H [facility] Last Admin: 07/24/22 12:07 Dose: Not Given Documented By: JUAN J Non-Admin Reason: No Access Naloxone HCl (Naloxone Hcl Nasal 4 Mg [place]) 4 mg NOSTRILALT ONCE PRN PRN Reason: Opiate Reversal Ondansetron HCl (Ondansetron Hcl 4 Mg/2 Ml Vial) 4 mg IVPUSH Q8H PRN PRN Reason: Nausea and Vomiting Oxycodone HCl (Oxycodone Hcl Immed Release 5 Mg Tablet) 10 mg PO Q4H PRN PRN Reason: Pain, Severe (Pain Scale 7-10) Last Admin: 07/24/22 03:51 Dose: 10 mg Documented By: SY Pharmacy Consult (Consult Rx Vancomycin Dosing) 1 each MISCELLANE DAILY PRN PRN Reason: Consult order Sodium Chloride (0.9 % Sodium Chloride Flush 3 Ml Syringe) 3 ml IVFLUSH QSHIFT [facility] Last Admin: 07/24/22 07:28 Dose: Not Given Documented By: NAIDA-SOFFA Non-Admin Reason: See Note Labs 07/23/22 06:10 07/24/22 06:11 Labs: Laboratory Results - last 24 hr 07/24/22 07/24/22 07/24/22 06:11 06:11 11:00 Estim Creat Clear Calc 132.5 Estimated GFR > 60 Vancomycin Trough 4.6 L Urine Opiates Screen POSITIVE H Urine Fentanyl Screen Not Detected Ur Barbiturates Screen Not Detected Ur Phencyclidine Scrn Not Detected Ur Amphetamines Screen Not Detected U Benzodiazepines Scrn Not Detected Urine Cocaine Screen POSITIVE H U Marijuana (THC) Screen Not Detected Microbiology Microbiology Results: Microbiology 07/22/22 18:34 Blood Culture - Preliminary Blood - Venous Streptococcus pyogenes (Grp A) 07/22/22 18:34 Blood Culture - Preliminary Blood - Venous Streptococcus pyogenes (Grp A) Assessment and Plan (1) Cellulitis of right forearm: Status: Acute (2) Sepsis: Status: Acute (3) IVDU (intravenous drug user): Status: Acute (4) Suicidal ideation: Status: Acute Plan 32-year-old female with past medical history of IV drug abuse? presents to the hospital with suicidal ideation and hallucination, found to have sepsis #? Sepsis/with Streptococcus pyogenes bacteremia Likely source skin with right forearm cellulitis and left elbow effusion CT left elbow showed joint effusion with no associated erosive changes to suggest septic arthropathy or osteomyelitis,ill-defined fat planes likely fluid along the intramuscular fat of the proximal anterior forearm, no drainable collection noted. Seen by orthopedic team no intervention recommended, since no drainable abscess noted . Will continue IV vancomycin and Zosyn day 2 Obtain echocardiogram, follow ID input #? suicidal ideation/worsening depression -? consult care team once patient medically stable continue sitter at bedside. # ? heavy iv drug use heroin and cocaine - being followed by Addiction Team being placed on methadone DVT PPX: lovenox ?Patient will need continued inpatient hospitalization for IV antibiotics due to bacteremia and suicidal ideation Time Spent With Patient Time: Total time managing care of this patient today ____ minutes. Quality Stroke Does the patient have a stroke diagnosis?: No VTE Prior VTE?: No VTE Risk Level:: Medical - moderate - high VTE Device Contraindication: Treatment Not Indicated VTE Drug Contraindication: N/A - Med Ordered
[2022-07-24] MEDS: Piperacillin Sodium/Tazobactam 3.375 GM in 0.9 % Sodium Chloride 50 ML IV (13:50)
[2022-07-24] MEDS: vancomycin HCL 1,250 MG in 0.9 % Sodium Chloride 250 ML 166.67 MG IV (14:41)
--- NOTE | 2022-07-24 14:58 | MHC.CM.PN ---
Met with patient, a 1:1 Sitter present. She does not have a PCP. The [facility] pamphlet was provided.
[2022-07-24 15:17] VITALS: BP 130/68; PULSE 89; RESP 18; TEMP 36.9; O2SAT 98
--- NOTE | 2022-07-24 15:31 | HO.ADDICTCON ---
History of Present Illness Date of Service: 07/24/2022 Chief Complaint: ivdu, sepsis, SI Reason for Consult: opioid withdrawal Sources of Information: patient interviewed and chart reviewed HPI Narrative: Patient is a 32 year old female known to this mortgage or loan underwriter via previous [facility] consult for OUD. Currently medically admitted with cellulitis of the forearm, secondary to IVDU. Patient seen by Recovery support RN over the weekend and earlier this AM. This morning patient presented as diaphoretic, restless, verbalizing discomfort from withdrawal and asking for additional dose of methadone. She had received 20mg on 07/23 while in ED. Methadone 30mg was ordered with positive effect. Seen in follow up by this mortgage or loan underwriter X2. First time, patient sleeping, woke easily and reported that methadone was helpful, then fell back to sleep. Second time, later in the afternoon, patient reporting body aches and feeling sick appearing diaphoretic and wincing. Requesting additional methadone. Of note, she reported to RN that she did not want to titrate doses. Chart review shows that patient was previously on methadone 100mg last month as she received a dose in our ED, with last dose letter verification. Unclear when she received last dose at [facility]. however, RN will verify that tomorrow morning. She reported using 2 bundles of heroin/fentanyl IV daily. She appears unkempt and is diofficult to engage. Mass Pat shows that she was prescribed suboxone in late June, but only picked up a 4 DS. Review of Systems Constitutional: Reports as per HPI Diagnostics Vital Signs (24Hr): Vital Signs - 24 hr 07/23/22 16:53 07/23/22 19:39 07/24/22 03:57 Temperature 99.7 F 98.7 F 98.7 F Pulse Rate 85 89 93 Respiratory Rate 18 18 18 Blood Pressure 117/68 109/58 L 136/70 Pulse Oximetry 98 98 98 Oxygen Delivery Method Room Air Room Air Room Air 07/24/22 07:51 07/24/22 11:36 07/24/22 15:17 Temperature 98.2 F 98.9 F 98.5 F Pulse Rate 94 93 89 Respiratory Rate 20 20 18 Blood Pressure 136/70 120/67 130/68 Pulse Oximetry 96 98 98 Oxygen Delivery Method Room Air Room Air Room Air BMI result Body Mass Index 24.5 Labs 07/23/22 06:10 07/24/22 06:11 Labs: Laboratory Results - last 48 hr 07/22/22 07/22/22 07/22/22 18:32 18:32 18:32 WBC 15.3 H RBC 3.63 L Hgb 9.6 L D Hct 30.0 L MCV 82.6 MCH 26.4 L MCHC 32.0 RDW 14.6 Plt Count 456 H D MPV 8.8 L Immature Gran % (Auto) 0.5 H Neut % (Auto) 73.4 H Lymph % (Auto) 16.8 L Story % (Auto) 8.8 Eos % (Auto) 0.1 Baso % (Auto) 0.4 Lymph # (Auto) 2.6 Story # (Auto) 1.3 H Eos # (Auto) 0.0 Baso # (Auto) 0.1 Abs Immat Gran (auto) 0.08 H Absolute Neuts (auto) 11.2 H Absolute Nucleated RBC 0.000 Nucleated RBC % (auto) 0.0 ESR Sodium 134 L Potassium 4.0 Chloride 97 Carbon Dioxide 26 Anion Gap 15 BUN 10 Creatinine 0.65 Estim Creat Clear Calc 108.0 Estimated GFR > 60 Random Glucose 150 H Lactic Acid 1.5 Calcium 8.4 D Magnesium 2.0 Total Bilirubin 0.4 AST 19 ALT 12 Alkaline Phosphatase 76 C-Reactive Protein 25.36 H Total Protein 6.6 Albumin 3.1 L Vancomycin Trough Urine Opiates Screen Urine Fentanyl Screen Ur Barbiturates Screen Ur Phencyclidine Scrn Ur Amphetamines Screen U Benzodiazepines Scrn Urine Cocaine Screen U Marijuana (THC) Screen Ethyl Alcohol < 10 COVID-19 ([facility]ILAY) COVID-19 Clin Com 07/22/22 07/22/22 07/23/22 18:32 20:34 06:10 WBC 11.5 H RBC 3.63 L Hgb 9.4 L Hct 30.4 L MCV 83.7 MCH 25.9 L MCHC 30.9 L RDW 14.8 Plt Count 421 H MPV 9.1 L Immature Gran % (Auto) 0.4 Neut % (Auto) 65.1 Lymph % (Auto) 22.9 Story % (Auto) 10.3 Eos % (Auto) 1.0 Baso % (Auto) 0.3 Lymph # (Auto) 2.6 Story # (Auto) 1.2 Eos # (Auto) 0.1 Baso # (Auto) 0.0 Abs Immat Gran (auto) 0.05 H Absolute Neuts (auto) 7.5 Absolute Nucleated RBC 0.000 Nucleated RBC % (auto) 0.0 ESR 65 H Sodium Potassium Chloride Carbon Dioxide Anion Gap BUN Creatinine Estim Creat Clear Calc Estimated GFR Random Glucose Lactic Acid Calcium Magnesium Total Bilirubin AST ALT Alkaline Phosphatase C-Reactive Protein Total Protein Albumin Vancomycin Trough Urine Opiates Screen Urine Fentanyl Screen Ur Barbiturates Screen Ur Phencyclidine Scrn Ur Amphetamines Screen U Benzodiazepines Scrn Urine Cocaine Screen U Marijuana (THC) Screen Ethyl Alcohol COVID-19 (NILAY) Negative COVID-19 Clin Com See Note 07/23/22 07/24/22 07/24/22 06:10 06:11 06:11 WBC RBC Hgb Hct MCV MCH MCHC RDW Plt Count MPV Immature Gran % (Auto) Neut % (Auto) Lymph % (Auto) Story % (Auto) Eos % (Auto) Baso % (Auto) Lymph # (Auto) Story # (Auto) Eos # (Auto) Baso # (Auto) Abs Immat Gran (auto) Absolute Neuts (auto) Absolute Nucleated RBC Nucleated RBC % (auto) ESR Sodium 135 Potassium 3.9 Chloride 102 Carbon Dioxide 25 Anion Gap 12 BUN 8 L Creatinine 0.68 0.55 Estim Creat Clear Calc 103.2 132.5 Estimated GFR > 60 > 60 Random Glucose 95 Lactic Acid Calcium 7.9 L Magnesium Total Bilirubin AST ALT Alkaline Phosphatase C-Reactive Protein Total Protein Albumin Vancomycin Trough 4.6 L Urine Opiates Screen Urine Fentanyl Screen Ur Barbiturates Screen Ur Phencyclidine Scrn Ur Amphetamines Screen U Benzodiazepines Scrn Urine Cocaine Screen U Marijuana (THC) Screen Ethyl Alcohol COVID-19 (NILAY) COVID-19 Clin Com 07/24/22 11:00 WBC RBC Hgb Hct MCV MCH MCHC RDW Plt Count MPV Immature Gran % (Auto) Neut % (Auto) Lymph % (Auto) Story % (Auto) Eos % (Auto) Baso % (Auto) Lymph # (Auto) Story # (Auto) Eos # (Auto) Baso # (Auto) Abs Immat Gran (auto) Absolute Neuts (auto) Absolute Nucleated RBC Nucleated RBC % (auto) ESR Sodium Potassium Chloride Carbon Dioxide Anion Gap BUN Creatinine Estim Creat Clear Calc Estimated GFR Random Glucose Lactic Acid Calcium Magnesium Total Bilirubin AST ALT Alkaline Phosphatase C-Reactive Protein Total Protein Albumin Vancomycin Trough Urine Opiates Screen POSITIVE H Urine Fentanyl Screen Not Detected Ur Barbiturates Screen Not Detected Ur Phencyclidine Scrn Not Detected Ur Amphetamines Screen Not Detected U Benzodiazepines Scrn Not Detected Urine Cocaine Screen POSITIVE H U Marijuana (THC) Screen Not Detected Ethyl Alcohol COVID-19 (NILAY) COVID-19 Clin Com Imaging Radiology Impressions: ITS Impressions Chest X-Ray 07/22/22 22:29 IMPRESSION: Minimal increased basilar markings more likely reflect component of atelectasis. Early or atypical infectious etiology considered less likely Elbow CT 07/23/22 00:30 IMPRESSION: * Positive elbow joint effusion. * No associated erosive changes to suggest septic arthropathy or osteomyelitis at this time. * Ill-defined fat planes, likely fluid along the intramuscular fat planes of the proximal anterior forearm. No drainable collection. Mental Status Exam Mental Status Exam Patient Appearance: Fatigued and Unkempt Level of Consciousness: Drowsy Patient Behavior: Appropriate Mood Description: Withdrawn Affect Description: Withdrawn Speech Pattern: Clear Judgement: Fair Medications Medications Current Medications Acetaminophen (Acetaminophen 325 Mg Tablet) 650 mg PO Q6H PRN PRN Reason: Pain, Mild (Pain Scale 1-3) Last Admin: 07/23/22 17:07 Dose: 650 mg Clonidine HCl (Clonidine Hcl 0.1 Mg Tablet) 0.1 mg PO TID [facility]; Protocol Enoxaparin Sodium (Enoxaparin Sodium 40 Mg/0.4 Ml Syringe) 40 mg SUBCUT Q24H [facility] Last Admin: 07/24/22 02:15 Dose: Not Given Piperacillin Sod/Tazobactam (Sod 3.375 gm/ Sodium Chloride) 50 mls @ 100 mls/hr IV Q6H [facility] Last Infusion: 07/24/22 14:26 Dose: Infused Vancomycin HCl 1,250 mg/ (Sodium Chloride) 250 mls @ 166.667 mls/hr IV Q8H [facility] Last Admin: 07/24/22 14:41 Dose: 166.67 mls/hr Methadone HCl (Methadone Hcl 20 Mg/2 Ml Oral.Conc) 10 mg PO ONCE ONE Stop: 07/24/22 15:29 Methadone HCl (Methadone Hcl 20 Mg/2 Ml Oral.Conc) 40 mg PO DAILY [facility] Naloxone HCl (Naloxone Hcl Nasal 4 Mg [place]) 4 mg NOSTRILALT ONCE PRN PRN Reason: Opiate Reversal Ondansetron HCl (Ondansetron Hcl 4 Mg/2 Ml Vial) 4 mg IVPUSH Q8H PRN PRN Reason: Nausea and Vomiting Oxycodone HCl (Oxycodone Hcl Immed Release 5 Mg Tablet) 10 mg PO Q4H PRN PRN Reason: Pain, Severe (Pain Scale 7-10) Last Admin: 07/24/22 13:54 Dose: 10 mg Pharmacy Consult (Consult Rx Vancomycin Dosing) 1 each MISCELLANE DAILY PRN PRN Reason: Consult order Sodium Chloride (0.9 % Sodium Chloride Flush 3 Ml Syringe) 3 ml IVFLUSH QSHIFT [facility] Last Admin: 07/24/22 14:26 Dose: Not Given Allergies Allergies Allergy/AdvReac Type Severity Reaction Status Date / Time amoxicillin Allergy Mild Hives Verified 07/22/22 20:08 Assessment & Plan Assessment & Plan (1) Opioid use disorder, severe, dependence: Status: Acute Code(s): F11.20 - Opioid dependence, uncomplicated Assessment and Plan: acute withdrawal--additional 10mg methadone ordered today (total of 40mg) 40mg tomorrow AM--patient indicated to RN that she did not wish to titrate dose. Will reassess with patient tomorrow Clonidine 0.1mg TID scheduled for anxiety related to withdrawal Likely withdrawing from cocaine as well which is why she is so sleepy. HIV, Hepatitis panels due to risk factors will continue to follow Total time managing care of this patient today __40__ minutes. PMFSH Past Medical History Medical History Anxiety Depression Ovarian cyst PTSD (post-traumatic stress disorder) Social History Social History Housing: Homeless Alcohol intake: current Patient Tobacco Use Status: Current everyday Tobacco user Tobacco use type: Cigarette Cigarette Packs Per Day: 1 Cigarettes Per Day: 20.0 Substance Use Type: Heroin and Marijuana service: No
[2022-07-24] MEDS: methADONE HCl 20 MG/2 ML ORAL.CONC 10 MG PO (16:08)
[2022-07-24] MEDS: cloNIDine HCL 0.1 MG TABLET PO ×2 (16:08→22:03)
--- NOTE | 2022-07-24 16:25 | W.PM.IDCN ---
History of Present Illness Data of Consult Service Date: 07/24/22 Requesting physician: Jack Pinzon Primary Care Provider: Unknown Physician HPI Reason for consult: sepsis Group A strep She presents with weakness and fever to 102.4 and tachycardia. She uses opioids and has multiple areas injection site hands and arms but denies. She reports no endocarditis or spinal infection but has Hepatitis C she thinks. She has suicidal ideation. Review of Systems Review of Systems: Yes all other systems are reviewed and are negative PMF Past Medical History Medical History Anxiety Depression Ovarian cyst PTSD (post-traumatic stress disorder) Family History Family history: reviewed and not pertinent Social History Social History Housing: Homeless Alcohol intake: current Patient Tobacco Use Status: Current everyday Tobacco user Tobacco use type: Cigarette Cigarette Packs Per Day: 1 Cigarettes Per Day: 20.0 Substance Use Type: Heroin and Marijuana service: No Meds Allergies Allergy/AdvReac Type Severity Reaction Status Date / Time amoxicillin Allergy Mild Hives Verified 07/22/22 20:08 Active Medications: Current Medications Acetaminophen (Acetaminophen 325 Mg Tablet) 650 mg PO Q6H PRN PRN Reason: Pain, Mild (Pain Scale 1-3) Last Admin: 07/23/22 17:07 Dose: 650 mg Clonidine HCl (Clonidine Hcl 0.1 Mg Tablet) 0.1 mg PO TID [facility]; Protocol Last Admin: 07/24/22 16:08 Dose: 0.1 mg Enoxaparin Sodium (Enoxaparin Sodium 40 Mg/0.4 Ml Syringe) 40 mg SUBCUT Q24H [facility] Last Admin: 07/24/22 02:15 Dose: Not Given Vancomycin HCl 1,250 mg/ (Sodium Chloride) 250 mls @ 166.667 mls/hr IV Q8H [facility] Last Infusion: 07/24/22 16:12 Dose: Infused Ceftriaxone Sodium 2 gm/ (Sodium Chloride) 50 mls @ 100 mls/hr IV Q24H [facility] Methadone HCl (Methadone Hcl 20 Mg/2 Ml Oral.Conc) 40 mg PO DAILY [facility] Naloxone HCl (Naloxone Hcl Nasal 4 Mg [place]) 4 mg NOSTRILALT ONCE PRN PRN Reason: Opiate Reversal Ondansetron HCl (Ondansetron Hcl 4 Mg/2 Ml Vial) 4 mg IVPUSH Q8H PRN PRN Reason: Nausea and Vomiting Oxycodone HCl (Oxycodone Hcl Immed Release 5 Mg Tablet) 10 mg PO Q4H PRN PRN Reason: Pain, Severe (Pain Scale 7-10) Last Admin: 07/24/22 13:54 Dose: 10 mg Sodium Chloride (0.9 % Sodium Chloride Flush 3 Ml Syringe) 3 ml IVFLUSH QSHIFT [facility] Last Admin: 07/24/22 14:26 Dose: Not Given Home Medications Medication Instructions Recorded Confirmed Last Taken Type clonidine HCl 0.1 mg tablet 0.1 mg PO Q6H PRN anxiety 06/21/21 07/22/22 Unknown History Physical Exam Vital Signs: Vital Signs: Last Vital Signs Temp 98.5 F 07/24/22 15:17 Pulse 89 07/24/22 15:17 Resp 18 07/24/22 15:17 BP 130/68 07/24/22 15:17 Pulse Ox 98 07/24/22 15:17 O2 Del Method 07/24/22 15:17 BMI result Body Mass Index 24.5 Const: General: cooperative HEENT: Head: Yes normal to inspection Face and sinus: Yes normal facial exam Mouth: Normal oral and palatal mucosa present Teeth and gingiva: dentition normal Eyes: General: appearance normal, both eyes and all related structures Pupils: Equal, round and reactive pupils present Resp: Effort & Inspection: normal respiratory effort Cardio: Rate: regular rate Rhythm: regular rhythm GI: Palpation (GI): Soft to palpation and nontender : General: Yes no CVA tenderness Back/Spine/Pelvis: Back: no CVA tenderness Skin: Other: cellulitis right hand and elbow and redness left arm multiple skin abrasions, wounds hands and arms Neuro: General: moves all extremities Cranial nerves: Yes Equal, round and reactive pupils present Extrem: General: Yes normal to inspection Psych: Appearance: grossly normal Results Labs 07/23/22 06:10 07/24/22 06:11 Labs: BMP 07/24/22 06:11 Creatinine 0.55 Microbiology Microbiology Results: Microbiology 07/22/22 18:34 Blood - Venous Blood Culture - Preliminary Streptococcus pyogenes (Grp A) 07/22/22 18:34 Blood - Venous Blood Culture - Preliminary Streptococcus pyogenes (Grp A) Assessment and Plan (1) Cellulitis of right forearm: Status: Acute (2) Sepsis: Status: Acute She has serious Group A strep disease with sepsis She has possible endocarditis. She has Hepatitis C and no HIV known. Clindamycin with Ceftriaxone should help diminish toxin and strep bacteria due to Clindamycin [place] effect. (3) IVDU (intravenous drug user): Status: Acute (4) Depression: Status: Acute (5) Effusion of elbow joint, left: Status: Acute Plan Stop piperacillin/tazobactam and Vancomycin Ceftriaxone 2g daily IV for now and Clindamycin 2-3 days but would give Ceftriaxone IV until echo viewed and if no endocarditis may give po Ceftin 500 mg bid for 14 day total. It is better to give IV while patient in hospital but too risky outpatient with active IVDU concerns to place PICC line. Check HIV and Hepatitis C viral load. Time Spent With Patient Time: Total time managing care of this patient today ____ minutes.
[2022-07-24] MEDS: cefTRIAXone sodium 2 GM in 0.9 % Sodium Chloride 50 ML IV (16:57)
[2022-07-24] MEDS: Clindamycin Phosphate/D5W 600 MG/50 ML PIGGYBACK 100 MG IV (17:55)
[2022-07-24 19:26] VITALS: BP 126/73; PULSE 80; RESP 18; TEMP 37.1; O2SAT 98
[2022-07-24 23:36] VITALS: BP 142/69; PULSE 83; RESP 18; TEMP 37.1; O2SAT 99
[2022-07-25] MEDS: vancomycin HCL 1,250 MG in 0.9 % Sodium Chloride 250 ML 166.67 MG IV ×2 (00:10→09:00)
[2022-07-25] MEDS: Clindamycin Phosphate/D5W 600 MG/50 ML PIGGYBACK 100 MG IV ×3 (01:46→16:40)
[2022-07-25 04:00] VITALS: BP 119/68; PULSE 83; RESP 20; TEMP 37; O2SAT 98
[2022-07-25] MEDS: oxyCODONE HCl Immed Release 5 MG TABLET 10 MG PO ×4 (05:06→21:14)
--- NOTE | 2022-07-25 07:00 | CA_ITS ---
Transthoracic Echocardiogram Patient (Last, First, Middle): Siomara Cheung, Gender: Female Date of : 1990 Age: 32 Procedure Date: 07/25/2022 Procedure Type: Transthoracic Echocardiogram [place] [facility] [place]: 160.02 cm Weight: 62.6 kg BSA: 1.65 m2 Heart Rate: bpm BP: 120 / 67 mmHg Rv Repair Technician: ALEX Referring MD: Jack Pinzon MD Symptoms: Gram-positive bacteremia/iv drug use Study Quality: Adequate Conclusions: - Normal left ventricular size, thickness, systolic function, and wall motion. The visually estimated ejection fraction is between 60-65%. Diastolic function is normal for age. - No obvious vegetation on visualized valves. Findings Left Ventricle Normal left ventricular size, thickness, systolic function, and wall motion. The visually estimated ejection fraction is between 60-65%. Diastolic function is normal for age. Right Ventricle Normal right ventricular cavity size and systolic function. Atria The left atrium is likely dilated. The right atrium is mildly dilated. Aortic Valve There is a normal trileaflet aortic valve. There is mild thickening of the aortic valve. There is no aortic valve stenosis. There is no aortic valve regurgitation. Mitral Valve Normal mitral valve structure and function. There is trace mitral valve regurgitation. There is no mitral valve stenosis. Pulmonic Valve The pulmonic valve was not well visualized. Tricuspid Valve Likely normal tricuspid valve structure and function. There is trace tricuspid valve regurgitation. Tricuspid regurgitation envelope is inadequate for calculation of right ventricular systolic pressure. Normal right atrial pressure. Great Vessels All visible segments of the aorta are normal in size. The pulmonary artery was not well visualized. Venous The inferior vena cava is normal in size and collapses greater than 50% with inspiration. Pericardium/Pleural There is no evidence of pericardial effusion. Prior Study Comparison No prior study available for comparison. Recommendations, Care & Conclusions Consider a MONICA if clinically appropriate. Measurements 2D Linear Measurements IVSd: 0.97 0.6-0.9/0.6-1.0 cm LVIDd: 4.55 3.9-5.3/4.2-5.9 cm LVIDd Index: 2.76 2.4-3.2/2.2-3.1 cm/m2 LVIDs: 3.31 2.0-3.6 cm LVPWd: 0.97 0.7-1.1 cm LA Diam: 3.00 2.7-3.8/3.0-4.0 cm LAIDs Index: 1.82 1.5-2.3 cm/m2 LV Mass: 185.80 67-162/88-224 g LV Mass Index: 112.61 43-95/49-115 g/m2 LVOT Diam: 1.90 3.0+(-)1.3 cm 2D Systolic Function EF 4C: 61.50 >55% EF 2C: 65.60 >55% EF BiP: 64.10 >55% Mitral Valve MV Pk E: 1.25 MV PK A: 0.61 MV Decel Time: 180.00 E/A: 2.00 E'Lateral: 22.20 E'Medial: 15.30 E/E' Med: 8.20 E/E' Lat: 5.60 PHT: 53.00 MVA PHT: 4.15 Decel [place]: 6.95 Aortic Valve AoV Pk Gary: 1.59 AoV Mn Gary: 1.14 AoV VTI: 0.36 AoV Pk Grad: 10.00 Aov Mn Grad: 6.00 NELSON Cont.VTI: 2.11 LVOT LVOT Pk Gary: 1.22 LVOT Mn Gary: 0.84 LVOT VTI: 0.26 LVOT Pk Grad: 6.00 LVOT Mn Grad: 3.00 LVOT Diam: 1.90 LVOT Area: 2.84 Diastolic Function MV Pk E: 1.25 MV Pk A: 0.61 E/A: 2.00 E'Medial: 15.30 E/E' Med: 8.20 E' Laterial: 22.20 E/E' Lat: 5.60 Right Ventricle TAPSE (mm): 31.30 TVS' Gary: 13.70 Great Vessels Aorta Sinus of Valsalva: 2.84 2.0-3.[address] [place]: 2.39 1.7-3.4 cm Ao Asc: 2.80 2.1-3.4 cm Ao Arch: 2.30 Updated in Other Vendor System with Status of Final Steve Lizama MD electronically signed on 07/25/2022 10:01:54 PM with status of Final
[2022-07-25 07:37] VITALS: BP 131/73; PULSE 88; RESP 20; TEMP 37; O2SAT 99
[2022-07-25] MEDS: cloNIDine HCL 0.1 MG TABLET PO (09:01)
[2022-07-25] MEDS: methADONE HCl 20 MG/2 ML ORAL.CONC 40 MG PO (09:01)
[2022-07-25] MEDS: 0.9 % Sodium Chloride Flush 3 ML SYRINGE IVFLUSH ×2 (09:01→16:41)
[2022-07-25 11:44] VITALS: BP 118/68; PULSE 70; RESP 18; TEMP 36.2; O2SAT 97
--- NOTE | 2022-07-25 13:48 | HO.PM.IMPN ---
Subjective Subjective Date of Service: 07/25/22 Interval History: Complaining of generalized pain, no fevers no chills tolerating diet no nausea, no vomiting, moving bowels, no chest pain, no palpitations, no other acute issues overnight. Review of Systems Review of Systems: Yes all other systems are reviewed and are negative Physical Exam Vital Signs: Vital Signs: Last Vital Signs Temp 97.2 F 07/25/22 11:44 Pulse 70 07/25/22 11:44 Resp 18 07/25/22 11:44 BP 118/68 07/25/22 11:44 Pulse Ox 97 07/25/22 11:44 O2 Del Method 07/25/22 11:44 BMI result Body Mass Index 24.5 Const: Other: General somnolent but arousable, no acute distress.? N monalisa supple CVS? re gular rate rhythm, Respiratory lungs clear to ausculta tion, no respirato ry distress, no wh eeze, no rhonchi. Gastrointestinal a bdomen soft, nonte nder, bowel sounds audible Extremiti es lower extremity , no edema. Neuro nonfocal , speech clear. Right upper extremity small u lcer at upper fore arm with warmth, l ess erythema , per sistent tenderness . Left elbow swel ling and tendernes s, no redness, no induration, pain w ith movement. Objective Data Active Medications Acetaminophen (Acetaminophen 325 Mg Tablet) 650 mg PO Q6H PRN PRN Reason: Pain, Mild (Pain Scale 1-3) Last Admin: 07/23/22 17:07 Dose: 650 mg Documented By: BEREKET Enoxaparin Sodium (Enoxaparin Sodium 40 Mg/0.4 Ml Syringe) 40 mg SUBCUT Q24H [facility] Last Admin: 07/25/22 02:23 Dose: Not Given Documented By: ESPERANZA Non-Admin Reason: Patient Refused Ceftriaxone Sodium 2 gm/ (Sodium Chloride) 50 mls @ 100 mls/hr IV Q24H [facility] Last Infusion: 07/24/22 17:33 Dose: 0 mls/hr Documented By: NAIDA-SOFFA Clindamycin Phosphate (Cleocin) 600 mg in 50 mls @ 100 mls/hr IV Q8H [facility] Last Infusion: 07/25/22 09:58 Dose: 0 mls/hr Documented By: HO.NGENOAL Methadone HCl (Methadone Hcl 20 Mg/2 Ml Oral.Conc) 40 mg PO DAILY [facility] Last Admin: 07/25/22 09:01 Dose: 40 mg Documented By: LEONID Naloxone HCl (Naloxone Hcl Nasal 4 Mg [place]) 4 mg NOSTRILALT ONCE PRN PRN Reason: Opiate Reversal Ondansetron HCl (Ondansetron Hcl 4 Mg/2 Ml Vial) 4 mg IVPUSH Q8H PRN PRN Reason: Nausea and Vomiting Oxycodone HCl (Oxycodone Hcl Immed Release 5 Mg Tablet) 10 mg PO Q4H PRN PRN Reason: Pain, Severe (Pain Scale 7-10) Last Admin: 07/25/22 09:00 Dose: 10 mg Documented By: LEONID Sodium Chloride (0.9 % Sodium Chloride Flush 3 Ml Syringe) 3 ml IVFLUSH QSHIFT [facility] Last Admin: 07/25/22 09:01 Dose: 3 ml Documented By: LEONID Labs 07/23/22 06:10 07/24/22 06:11 Microbiology Microbiology Results: Microbiology 07/22/22 18:34 Blood Culture - Final Blood - Venous Streptococcus pyogenes (Grp A) 07/22/22 18:34 Blood Culture - Final Blood - Venous Streptococcus pyogenes (Grp A) Assessment and Plan (1) Cellulitis of right forearm: Status: Acute (2) Sepsis: Status: Acute (3) IVDU (intravenous drug user): Status: Acute (4) Suicidal ideation: Status: Acute Plan 32-year-old female with past medical history of IV drug abuse? presents to the hospital with suicidal ideation and hallucination, found to have sepsis #? Sepsis/with Streptococcus pyogenes bacteremia Likely source skin with right forearm cellulitis and left elbow effusion, WBC improved no recurrent fevers CT left elbow showed joint effusion with no associated erosive changes to suggest septic arthropathy or osteomyelitis,ill-defined fat planes likely fluid along the intramuscular fat of the proximal anterior forearm, no drainable collection noted. Seen by orthopedic team no intervention recommended, since no drainable abscess noted . Status post IV vancomycin and Zosyn x2 days now placed on IV ceftriaxone and clindamycin as per ID echocardiogram done report pending if echo negative then patient will be discharged on by mouth antibiotics, On oxycodone as needed for pain control. #? suicidal ideation/worsening depression -? consult care team once patient medically stable continue sitter at bedside. # ? heavy iv drug use heroin and cocaine - being followed by Addiction Team, on methadone. DVT PPX: lovenox ?Patient will need continued inpatient hospitalization for IV antibiotics due to bacteremia and suicidal ideation . Time Spent With Patient Time: Total time managing care of this patient today ____ minutes. Quality Stroke Does the patient have a stroke diagnosis?: No VTE Prior VTE?: No VTE Risk Level:: Medical - moderate - high VTE Device Contraindication: Treatment Not Indicated VTE Drug Contraindication: N/A - Med Ordered
--- NOTE | 2022-07-25 15:29 | PM.PNORT ---
Subjective Subjective Date of Service: 07/25/22 Physical Exam Vital Signs: Vital Signs: Last Vital Signs Temp 97.2 F 07/25/22 11:44 Pulse 70 07/25/22 11:44 Resp 18 07/25/22 11:44 BP 118/68 07/25/22 11:44 Pulse Ox 97 07/25/22 11:44 O2 Del Method 07/25/22 11:44 BMI result Body Mass Index 24.5 Const: General: cooperative, healthy appearing and no acute distress Resp: Effort & Inspection: normal respiratory effort and able to speak in complete sentences Cardio: Rate: regular rate Peripheral pulses: Peripheral pulses 2+ throughout GI: Palpation (GI): Soft to palpation Skin: Lesions: no lesions Rashes: no rashes Extrem: Other: Left forearm and hand track martinez noted. No evidence of erythema or abscess formation throughout the forearm. She is able to move the hand, wrist and elbow . C/o general discomfort. NVI. Procedures Date of Service Date of Service: 07/25/22 Progress Note: A&P Assessment and plan (1) Cellulitis of right forearm: Status: Acute Assessment and Plan: No area of abscess noted at this time based off of CT scan Cont. IV abx Pain management as necessary Please reconsult if abscess forms for surgical intervention. Time Spent With Patient Time: Total time managing care of this patient today ____ minutes. Quality Stroke Does the patient have a stroke diagnosis?: No VTE Prior VTE?: No VTE Risk Level:: Medical - moderate - high VTE Device Contraindication: Treatment Not Indicated VTE Drug Contraindication: N/A - Med Ordered
[2022-07-25 15:54] VITALS: BP 122/62; PULSE 86; RESP 17; TEMP 36.8; O2SAT 97
[2022-07-25 16:08] LABS: Glucose, Whole Blood 101 mg/dL (60-115)
[2022-07-25] MEDS: Acetaminophen 325 MG TABLET 650 MG PO (16:40)
[2022-07-25] MEDS: cefTRIAXone sodium 2 GM in 0.9 % Sodium Chloride 50 ML IV (16:40)
[2022-07-25] MEDS: Nicotine 21 MG PATCH.TD24 TRANSDERMA (18:22)
[2022-07-25 20:00] VITALS: BP 117/68; PULSE 63; RESP 18; TEMP 36.9; O2SAT 98
[2022-07-26] MEDS: Clindamycin Phosphate/D5W 600 MG/50 ML PIGGYBACK 100 MG IV ×3 (01:11→16:27)
[2022-07-26] MEDS: oxyCODONE HCl Immed Release 5 MG TABLET 10 MG PO ×6 (01:12→21:41)
[2022-07-26 03:51] VITALS: BP 133/72; PULSE 94; RESP 16; TEMP 37.8; O2SAT 98
[2022-07-26] MEDS: Nicotine 21 MG PATCH.TD24 TRANSDERMA ×2 (03:51→09:22)
[2022-07-26 07:05] VITALS: BP 136/76; PULSE 80; RESP 16; TEMP 36.7; O2SAT 98
[2022-07-26] MEDS: methADONE HCl 20 MG/2 ML ORAL.CONC 40 MG PO (08:15)
[2022-07-26] MEDS: 0.9 % Sodium Chloride Flush 3 ML SYRINGE IVFLUSH ×2 (08:16→17:10)
--- NOTE | 2022-07-26 09:20 | PM.PNORT ---
Subjective Subjective Date of Service: 07/26/22 Interval history: Patient is sitting up in bed eating breakfast. More alert and cooperative. Reports she no longer has any pain in the left upper extremity. No overnight events. No additional complaints. Physical Exam Vital Signs: Vital Signs: Last Vital Signs Temp 98.1 F 07/26/22 07:05 Pulse 80 07/26/22 07:05 Resp 16 07/26/22 07:05 BP 136/76 07/26/22 07:05 Pulse Ox 98 07/26/22 07:05 O2 Del Method 07/26/22 07:05 BMI result Body Mass Index 24.5 Const: General: cooperative, healthy appearing and no acute distress Resp: Effort & Inspection: normal respiratory effort and able to speak in complete sentences Cardio: Rate: regular rate Peripheral pulses: Peripheral pulses 2+ throughout GI: Palpation (GI): Soft to palpation Skin: Lesions: no lesions Rashes: no rashes Extrem: Other: Left forearm and hand track martinez noted. No evidence of erythema or abscess formation throughout the forearm. able to perform full elbow hand and wrist ROM. NVI. Procedures Date of Service Date of Service: 07/26/22 Progress Note: A&P Assessment and plan (1) Cellulitis of right forearm: Status: Acute Assessment and Plan: No area of abscess noted at this time based off of CT scan Cont. abx Pain management as necessary Please reconsult if abscess forms for surgical intervention. (2) IVDU (intravenous drug user): Status: Acute (3) Sepsis: Status: Acute (4) Suicidal ideation: Status: Acute (5) Depression: Status: Acute (6) Effusion of elbow joint, left: Status: Acute (7) Opioid use disorder, severe, dependence: Status: Acute (8) Leukocytosis: Status: Acute Time Spent With Patient Time: Total time managing care of this patient today ____ minutes. Quality Stroke Does the patient have a stroke diagnosis?: No VTE Prior VTE?: No VTE Risk Level:: Medical - moderate - high VTE Device Contraindication: Treatment Not Indicated VTE Drug Contraindication: N/A - Med Ordered
[2022-07-26 09:29] LABS: Hematocrit 33.4 % (37.0-47.0); Hemoglobin 10.5 g/dl (12.0-16.0); Mean Corpuscular HGB Conc 31.4 g/dl (31.0-35.0); Mean Corpuscular Hemoglobin 26.3 pg (27.0-33.0); Mean Corpuscular Volume 83.5 fL (80.0-98.0); Mean Platelet Volume 9.2 fL (9.4-12.3); Platelet Count 641 X10*3/uL (160-400); Red Cell Distribution Width 14.9 % (11.0-16.0); White Blood Count 9.9 X10*3/uL (4.8-10.8)
[2022-07-26 09:49] LABS: Anion Gap 15 (12-20); Blood Urea Nitrogen 9 mg/dL (9-16); Calcium 8.6 mg/dL (8.4-10.2); Carbon Dioxide 25 mmol/L (22-29); Chloride 104 mmol/L (96-108); Creatinine Clr Calc Pharmacy 115.7; Estimated Glomerular Filt Rate > 60; Glucose Random 82 mg/dL (60-115); Sodium 139 mmol/L (135-145)
[2022-07-26 10:10] LABS: HIV AB/AG Nonreactive (Nonreactive); HIV Num 1 0.07 S/CO (0.00-0.99)
--- NOTE | 2022-07-26 11:59 | MHC.RECOVRN ---
Pts referral sent [facility]. Pt to present between 6AM-10AM to continue methadone.
[2022-07-26 12:00] VITALS: BP 127/77; PULSE 82; RESP 16; TEMP 36.8; O2SAT 100
--- NOTE | 2022-07-26 13:08 | P.PNADD_ITS ---
Subjective Subjective Date of Service: 07/25/22 Reason For Visit: ivdu, sepsis, SI Interim History: patient seen in follow up drowsy, however patient observer reports patient was awake most of the morning and ate her breakfast. clonidine discontinued as patient appeared very sleepy following administration denies any withdrawal sx Review of Systems Medical Review of Systems: unchanged Mental Status Exam Mental Status Exam Patient Appearance: Fatigued and Unkempt Level of Consciousness: Drowsy Affect Description: Blunted Diagnostics Vital Signs (24Hr): Vital Signs - 24 hr 07/25/22 15:54 07/25/22 20:00 07/26/22 03:51 Temperature 98.2 F 98.5 F 100.1 F Pulse Rate 86 63 94 Respiratory Rate 17 18 16 Blood Pressure 122/62 117/68 133/72 Pulse Oximetry 97 98 98 Oxygen Delivery Method Room Air Room Air Room Air 07/26/22 07:05 07/26/22 12:00 Temperature 98.1 F 98.2 F Pulse Rate 80 82 Respiratory Rate 16 16 Blood Pressure 136/76 127/77 Pulse Oximetry 98 100 Oxygen Delivery Method Room Air Room Air BMI result Body Mass Index 24.5 Labs 07/26/22 08:46 07/26/22 08:46 Labs: Laboratory Results - last 48 hr 07/25/22 07/26/22 07/26/22 15:51 08:46 08:46 WBC 9.9 RBC 4.00 L Hgb 10.5 L Hct 33.4 L MCV 83.5 MCH 26.3 L MCHC 31.4 RDW 14.9 Plt Count 641 H D MPV 9.2 L Absolute Nucleated RBC 0.000 Nucleated RBC % (auto) 0.0 Sodium Potassium Chloride Carbon Dioxide Anion Gap BUN Creatinine 0.63 Estim Creat Clear Calc 115.7 Estimated GFR > 60 POC Glucose 101 Random Glucose Calcium C-Reactive Protein HIV 1&2 Ab/P24 Ag 4thGn 07/26/22 07/26/22 08:46 08:46 WBC RBC Hgb Hct MCV MCH MCHC RDW Plt Count MPV Absolute Nucleated RBC Nucleated RBC % (auto) Sodium 139 Potassium 5.0 D Chloride 104 Carbon Dioxide 25 Anion Gap 15 BUN 9 Creatinine 0.63 Estim Creat Clear Calc 115.7 Estimated GFR > 60 POC Glucose Random Glucose 82 Calcium 8.6 D C-Reactive Protein 12.90 H HIV 1&2 Ab/P24 Ag 4thGn Nonreactive Imaging Radiology Impressions: ITS Impressions Chest X-Ray 07/22/22 22:29 IMPRESSION: Minimal increased basilar markings more likely reflect component of atelectasis. Early or atypical infectious etiology considered less likely Elbow CT 07/23/22 00:30 IMPRESSION: * Positive elbow joint effusion. * No associated erosive changes to suggest septic arthropathy or osteomyelitis at this time. * Ill-defined fat planes, likely fluid along the intramuscular fat planes of the proximal anterior forearm. No drainable collection. Medications Medications Current Medications Acetaminophen (Acetaminophen 325 Mg Tablet) 650 mg PO Q6H PRN PRN Reason: Pain, Mild (Pain Scale 1-3) Last Admin: 07/25/22 16:40 Dose: 650 mg Cefuroxime Axetil (Cefuroxime Axetil 500 Mg Tablet) 500 mg PO BID [facility] Enoxaparin Sodium (Enoxaparin Sodium 40 Mg/0.4 Ml Syringe) 40 mg SUBCUT Q24H [facility] Last Admin: 07/26/22 01:12 Dose: Not Given Clindamycin Phosphate (Cleocin) 600 mg in 50 mls @ 100 mls/hr IV Q8H [facility] Last Infusion: 07/26/22 11:47 Dose: Infused Methadone HCl (Methadone Hcl 20 Mg/2 Ml Oral.Conc) 40 mg PO DAILY [facility] Last Admin: 07/26/22 08:15 Dose: 40 mg Naloxone HCl (Naloxone Hcl Nasal 4 Mg [place]) 4 mg NOSTRILALT ONCE PRN PRN Reason: Opiate Reversal Nicotine (Nicotine 21 Mg Patch.Td24) 21 mg TRANSDERMA DAILY [facility] Last Admin: 07/26/22 09:22 Dose: 21 mg Ondansetron HCl (Ondansetron Hcl 4 Mg/2 Ml Vial) 4 mg IVPUSH Q8H PRN PRN Reason: Nausea and Vomiting Oxycodone HCl (Oxycodone Hcl Immed Release 5 Mg Tablet) 10 mg PO Q4H PRN PRN Reason: Pain, Severe (Pain Scale 7-10) Last Admin: 07/26/22 12:35 Dose: 10 mg Sodium Chloride (0.9 % Sodium Chloride Flush 3 Ml Syringe) 3 ml IVFLUSH QSHIFT [facility] Last Admin: 07/26/22 08:16 Dose: 3 ml Allergies Allergies Allergy/AdvReac Type Severity Reaction Status Date / Time amoxicillin Allergy Mild Hives Verified 07/22/22 20:08 Assessment & Plan Assessment & Plan (1) Opioid use disorder, severe, dependence: Status: Acute Code(s): F11.20 - Opioid dependence, uncomplicated Assessment and Plan: * no further increase to methadone at this time * unclear disposition as patient has to be seen by * of cleared to go home, RN has already connected with N to conntinue methadone at their [facility] Total time managing care of this patient today 20____ minutes.
--- NOTE | 2022-07-26 13:26 | P.PNIM_ITS ---
Subjective Subjective Date of Service: 07/26/22 Interval History: Complaining of bilateral upper extremity discomfort, denies fever, chills, tolerating diet, no nausea, no vomiting, no abdominal pain, no diarrhea, denies withdrawal symptoms. Review of Systems Review of Systems: Yes all other systems are reviewed and are negative Physical Exam Vital Signs: Vital Signs: Last Vital Signs Temp 98.2 F 07/26/22 12:00 Pulse 82 07/26/22 12:00 Resp 16 07/26/22 12:00 BP 127/77 07/26/22 12:00 Pulse Ox 100 07/26/22 12:00 O2 Del Method 07/26/22 12:00 BMI result Body Mass Index 24.5 Const: Other: General awake alert, in no acute distress.? Neck supple CVS? regular rate rhythm, Respiratory lungs clear to auscultation, no respiratory distress, no wheeze, no rhonchi. Gastrointestinal abdomen soft, nontender, bowel sounds audible Extremities lower extremity, no edema. Neuro nonfocal , speech clear. Right upper extremity well-healed small ulcer at upper forearm no warmth, mild induration right upper arm less erythema , persistent tenderness . Left elbow swelling and tenderness improving, no redness, no induration. Objective Data Active Medications Acetaminophen (Acetaminophen 325 Mg Tablet) 650 mg PO Q6H PRN PRN Reason: Pain, Mild (Pain Scale 1-3) Last Admin: 07/25/22 16:40 Dose: 650 mg Documented By: YOHAN Cefuroxime Axetil (Cefuroxime Axetil 500 Mg Tablet) 500 mg PO BID [facility] Enoxaparin Sodium (Enoxaparin Sodium 40 Mg/0.4 Ml Syringe) 40 mg SUBCUT Q24H [facility] Last Admin: 07/26/22 01:12 Dose: Not Given Documented By: DOC Non-Admin Reason: Patient Refused Clindamycin Phosphate (Cleocin) 600 mg in 50 mls @ 100 mls/hr IV Q8H [facility] Last Infusion: 07/26/22 11:47 Dose: 0 mls/hr Documented By: LIDIA Methadone HCl (Methadone Hcl 20 Mg/2 Ml Oral.Conc) 40 mg PO DAILY [facility] Last Admin: 07/26/22 08:15 Dose: 40 mg Documented By: LIDIA Naloxone HCl (Naloxone Hcl Nasal 4 Mg [place]) 4 mg NOSTRILALT ONCE PRN PRN Reason: Opiate Reversal Nicotine (Nicotine 21 Mg Patch.Td24) 21 mg TRANSDERMA DAILY [facility] Last Admin: 07/26/22 09:22 Dose: 21 mg Documented By: LIDIA Ondansetron HCl (Ondansetron Hcl 4 Mg/2 Ml Vial) 4 mg IVPUSH Q8H PRN PRN Reason: Nausea and Vomiting Oxycodone HCl (Oxycodone Hcl Immed Release 5 Mg Tablet) 10 mg PO Q4H PRN PRN Reason: Pain, Severe (Pain Scale 7-10) Last Admin: 07/26/22 12:35 Dose: 10 mg Documented By: LIDIA Sodium Chloride (0.9 % Sodium Chloride Flush 3 Ml Syringe) [facility] Last Admin: 07/26/22 08:16 Dose: 3 ml Documented By: LIDIA Labs 07/26/22 08:46 07/26/22 08:46 Labs: Laboratory Results - last 24 hr 07/25/22 07/26/22 07/26/22 15:51 08:46 08:46 MCV 83.5 MCH 26.3 L MCHC 31.4 RDW 14.9 Plt Count 641 H D MPV 9.2 L Absolute Nucleated RBC 0.000 Nucleated RBC % (auto) 0.0 Anion Gap Estim Creat Clear Calc 115.7 Estimated GFR > 60 POC Glucose 101 Random Glucose Calcium C-Reactive Protein HIV 1&2 Ab/P24 Ag 4thGn 07/26/22 07/26/22 08:46 08:46 MCV MCH MCHC RDW Plt Count MPV Absolute Nucleated RBC Nucleated RBC % (auto) Anion Gap 15 Estim Creat Clear Calc 115.7 Estimated GFR > 60 POC Glucose Random Glucose 82 Calcium 8.6 D C-Reactive Protein 12.90 H HIV 1&2 Ab/P24 Ag 4thGn Nonreactive Microbiology Microbiology Results: Microbiology 07/22/22 18:34 Blood Culture - Final Blood - Venous Streptococcus pyogenes (Grp A) 07/22/22 18:34 Blood Culture - Final Blood - Venous Streptococcus pyogenes (Grp A) Assessment and Plan (1) Cellulitis of right forearm: Status: Acute (2) Sepsis: Status: Acute (3) IVDU (intravenous drug user): Status: Acute (4) Suicidal ideation: Status: Acute Plan 32-year-old female with past medical history of IV drug abuse? presents to the hospital with suicidal ideation and hallucination, found to have sepsis #? Sepsis/with Streptococcus pyogenes bacteremia Likely source skin with right forearm cellulitis and left elbow effusion, WBC improved no recurrent fevers CT left elbow showed joint effusion with no associated erosive changes to suggest septic arthropathy or osteomyelitis,ill-defined fat planes likely fluid along the intramuscular fat of the proximal anterior forearm, no drainable collection noted. Seen by orthopedic team no intervention recommended, since no drainable abscess noted . Status post IV vancomycin and Zosyn x2 days now on IV ceftriaxone and clindamycin day 2, will DC clindamycin prior to discharge. echocardiogram showed no vegetation. Will change IV ceftriaxone to by mouth Ceftin 500 mg twice daily for total 14 days On oxycodone as needed for pain control, will change dose to q.6 hours as needed, apply hot pack to right forearm in duration. #? suicidal ideation/worsening depression -? consult care team once patient medically stable continue sitter at bedside. # ? heavy iv drug use heroin and cocaine - being followed by Addiction Team, on methadone 40 mg daily. DVT PPX: lovenox ?Patient will need continued inpatient hospitalization for IV antibiotics due to bacteremia and suicidal ideation . Time Spent With Patient Time: Total time managing care of this patient today ____ minutes. Quality Stroke Does the patient have a stroke diagnosis?: No VTE Prior VTE?: No VTE Risk Level:: Medical - moderate - high VTE Device Contraindication: Treatment Not Indicated VTE Drug Contraindication: N/A - Med Ordered
--- NOTE | 2022-07-26 14:01 | MHC.CM.PN ---
Per MD rounds patient will discharge on PO ABX. The patient has been seen be Addiction Medicine. [facility] is [facility] home self care. Patient will take the shuttle home.
[2022-07-26 15:22] VITALS: BP 122/72; PULSE 78; RESP 16; TEMP 36.7; O2SAT 99
--- NOTE | 2022-07-26 15:56 | PM.IDPN ---
Subjective Subjective Date of Service: 07/26/22 Critical Care Time (minutes): 15 Comment: She feels better She has no complaints Objective Data Labs 07/26/22 08:46 07/26/22 08:46 Labs: Laboratory Results - last 24 hr 07/25/22 07/26/22 07/26/22 15:51 08:46 08:46 WBC 9.9 RBC 4.00 L Hgb 10.5 L Hct 33.4 L MCV 83.5 MCH 26.3 L MCHC 31.4 RDW 14.9 Plt Count 641 H D MPV 9.2 L Absolute Nucleated RBC 0.000 Nucleated RBC % (auto) 0.0 Sodium Potassium Chloride Carbon Dioxide Anion Gap BUN Creatinine 0.63 Estim Creat Clear Calc 115.7 Estimated GFR > 60 POC Glucose 101 Random Glucose Calcium C-Reactive Protein HIV 1&2 Ab/P24 Ag 4thGn 07/26/22 07/26/22 08:46 08:46 WBC RBC Hgb Hct MCV MCH MCHC RDW Plt Count MPV Absolute Nucleated RBC Nucleated RBC % (auto) Sodium 139 Potassium 5.0 D Chloride 104 Carbon Dioxide 25 Anion Gap 15 BUN 9 Creatinine 0.63 Estim Creat Clear Calc 115.7 Estimated GFR > 60 POC Glucose Random Glucose 82 Calcium 8.6 D C-Reactive Protein 12.90 H HIV 1&2 Ab/P24 Ag 4thGn Nonreactive Microbiology Microbiology Results: Microbiology 07/22/22 18:34 Blood - Venous Blood Culture - Final Streptococcus pyogenes (Grp A) 07/22/22 18:34 Blood - Venous Blood Culture - Final Streptococcus pyogenes (Grp A) Physical Exam Vital Signs: Vital Signs: Last Vital Signs Temp 98.0 F 07/26/22 15:22 Pulse 78 07/26/22 15:22 Resp 16 07/26/22 15:22 BP 122/72 07/26/22 15:22 Pulse Ox 99 07/26/22 15:22 O2 Del Method 07/26/22 15:22 BMI result Body Mass Index 24.5 Const: General: cooperative Resp: Effort & Inspection: normal respiratory effort Cardio: Rate: regular rate Rhythm: regular rhythm GI: Palpation (GI): Soft to palpation and nontender Extrem: Other: resolved redness hands in good spirits Assessment and Plan Assessment and plan (1) Cellulitis of right forearm: Problem details: She has group A strep bacteremia due to cellulitis and is improving She is HIV negative Would stop IV antibiotics if echo negative and blood culture now negative. Po Ceftin 500 mg bid to finish 14d antibiotic course. Status: Acute (2) Sepsis: Status: Acute Time Spent With Patient Time: Total time managing care of this patient today ____ minutes.
--- NOTE | 2022-07-26 16:04 | PM.IDPN ---
Subjective Subjective Date of Service: 07/26/22 Critical Care Time (minutes): 15 Comment: he is feeling well Objective Data Labs 07/26/22 08:46 07/26/22 08:46 Labs: Laboratory Results - last 24 hr 07/25/22 07/26/22 07/26/22 15:51 08:46 08:46 WBC 9.9 RBC 4.00 L Hgb 10.5 L Hct 33.4 L MCV 83.5 MCH 26.3 L MCHC 31.4 RDW 14.9 Plt Count 641 H D MPV 9.2 L Absolute Nucleated RBC 0.000 Nucleated RBC % (auto) 0.0 Sodium Potassium Chloride Carbon Dioxide Anion Gap BUN Creatinine 0.63 Estim Creat Clear Calc 115.7 Estimated GFR > 60 POC Glucose 101 Random Glucose Calcium C-Reactive Protein HIV 1&2 Ab/P24 Ag 4thGn 07/26/22 07/26/22 08:46 08:46 WBC RBC Hgb Hct MCV MCH MCHC RDW Plt Count MPV Absolute Nucleated RBC Nucleated RBC % (auto) Sodium 139 Potassium 5.0 D Chloride 104 Carbon Dioxide 25 Anion Gap 15 BUN 9 Creatinine 0.63 Estim Creat Clear Calc 115.7 Estimated GFR > 60 POC Glucose Random Glucose 82 Calcium 8.6 D C-Reactive Protein 12.90 H HIV 1&2 Ab/P24 Ag 4thGn Nonreactive Microbiology Microbiology Results: Microbiology 07/22/22 18:34 Blood - Venous Blood Culture - Final Streptococcus pyogenes (Grp A) 07/22/22 18:34 Blood - Venous Blood Culture - Final Streptococcus pyogenes (Grp A) Physical Exam Vital Signs: Vital Signs: Last Vital Signs Temp 98.0 F 07/26/22 15:22 Pulse 78 07/26/22 15:22 Resp 16 07/26/22 15:22 BP 122/72 07/26/22 15:22 Pulse Ox 99 07/26/22 15:22 O2 Del Method 07/26/22 15:22 BMI result Body Mass Index 24.5 HEENT: Head: Yes normal to inspection Mouth: Normal oral and palatal mucosa present Resp: Effort & Inspection: normal respiratory effort Cardio: Rate: regular rate Rhythm: regular rhythm GI: Inspection: Yes normal to inspection Skin: General skin exam: no rashes or lesions noted Assessment and Plan Time Spent With Patient Time: Total time managing care of this patient today ____ minutes.
[2022-07-26] MEDS: Acetaminophen 325 MG TABLET 650 MG PO (16:27)
[2022-07-26 20:00] VITALS: BP 115/78; PULSE 68; RESP 18; TEMP 36.2; O2SAT 95
--- NOTE | 2022-07-26 21:56 | MHC.CARE ---
Care team made a second attempt to assess pt for the second time. Client refused assessment as she reported that she refuses to discuss SI or AH. Pt reported that she is suppose to discharge on 07/27 and will consider speaking to someone tomorrow.
[2022-07-27] VITALS: BP 128/65; PULSE 77; RESP 18; TEMP 36.8; O2SAT 98
[2022-07-27] MEDS: oxyCODONE HCl Immed Release 5 MG TABLET 10 MG PO ×2 (02:13→08:38)
[2022-07-27] MEDS: Clindamycin Phosphate/D5W 600 MG/50 ML PIGGYBACK 100 MG IV ×2 (02:14→08:37)
[2022-07-27] MEDS: Acetaminophen 325 MG TABLET 650 MG PO (03:09)
[2022-07-27 07:28] VITALS: BP 144/78; PULSE 78; RESP 20; TEMP 36.8; O2SAT 99
[2022-07-27] MEDS: Nicotine 21 MG PATCH.TD24 TRANSDERMA (08:36)
[2022-07-27] MEDS: methADONE HCl 20 MG/2 ML ORAL.CONC 40 MG PO (08:37)
[2022-07-27] MEDS: 0.9 % Sodium Chloride Flush 3 ML SYRINGE IVFLUSH (08:37)
[2022-07-27 11:05] VITALS: BP 130/77; PULSE 73; RESP 20; TEMP 36.6; O2SAT 98
--- NOTE | 2022-07-27 11:16 | P.DS_ITS ---
DS: Providers Provider Date of Service: 07/27/22 Date of admission: 07/23/22 02:05 Primary care physician: Unknown Physician Consults: 07/23/22 02:03 Consult to Infectious Diseases Routine Consulting Provider: Zulay Miller Reason for consultation: IVDU Has provider been notified: No Consult to Orthopedics Routine Consulting Provider: Frandy Gottlieb Reason for consultation: left elbow swelling Has provider been notified: No Consult to Psychiatry Routine Consulting Provider: Psych Covering Reason for consultation: SI Has provider been notified: No 07/23/22 07:08 Consult to Care Team Routine Comment: Reason for consultation: IV drug abuse 07/23/22 10:28 Addiction Medicine Routine Consulting Provider: Addiction Covering Reason for consultation: iv heroin and cocaine Has provider been notified: No 07/26/22 09:38 Consult to Care Team Routine Comment: Reason for consultation: Patient is medically cleared DS: Diagnosis Discharge Diagnosis (1) Cellulitis of right forearm: Status: Acute (2) Sepsis: Status: Acute DS: Summary Hospital Course Hospital Course: Date of Service: 07/23/22 Chief Complaint: detox, SI ?32-year-old female with past medical history of opioid use disorder, presents to the hospital with increased depression and suicidal ideation, patient also reported auditory hallucination telling her to kill herself.? On my interview patient is agitated, not given me history, does not want me to touch her or talk to her.? I am unable to get review of system from patient ? On arrival to the ED patient found to have a temperature of 102.4 degrees, heart rate in the 110s, stable blood pressure, 98% on room air Labs are significant for WBC count of? 15.3, hemoglobin of 9.6, hematocrit of 30, left shift, ESR of 65, sodium of 134, CRP of 25.36, ?patient also has left elbow swelling and pain, CT of the left elbow shows positive elbow joint effusion, no associated erosive changes to suggest septic arthropathy or osteomyelitis at this time, ill-defined fat planes likely fluid along the intramuscular fat planes of the proximal anterior forearm, no drainable collection ?patient started on IV antibiotics and will be admitted for further management. Hospital course 32-year-old female with past medical history of IV drug abuse? presents to the hospital with suicidal ideation and hallucination, found to have sepsis #? Sepsis/with Streptococcus pyogenes bacteremia likely source skin with right forearm cellulitis and left elbow effusion, patient treated with IV vancomycin and Zosyn, WBC improved, no recurrent fevers, ? ? seen by orthopedic team no intervention recommended for left elbow effusion, since no drainable abscess noted , blood cultures grew Streptococcus pyogenes therefore id recommended IV ceftriaxone and IV clindamycin for 2-3 days, echocardiogram showed no vegetation since patient is hemodynamically stable she is being discharged home on total 4 weeks of by mouth Ceftin 500 mg b.i.d. Recommend to use hot packs for right upper arm and avoid using IV drugs.. ? ? #? suicidal ideation/worsening depression , patient was admitted with sitter, and subsequently evaluated by care team and psych,and has been cleared for discharge to home. # ? heavy iv drug use heroin and cocaine patient followed closely by Addiction Team treated with methadone, and has been recommended outpatient follow-up for methadone, patient is being discharged home on small supply of oxycodone 5 mg total 16 tablets, strongly recommend to abstain from IV drug use. # tobacco use disorder strongly recommend to abstain from smoking and discharge her nicotine 21 mg patch number 28 Time Spent with Patient Time attestation: Total time managing care of this patient today ____ minutes. Discharge coordination time: Greater than 30 minutes Quality: Safe Use of Opioids Does Pt have an Active Cancer Diagnosis on the Problem List?: No Quality: Stroke Does the patient have a stroke diagnosis?: No Physical Exam Vital Signs: Vital Signs: Last Vital Signs Temp 97.9 F 07/27/22 11:05 Pulse 73 07/27/22 11:05 Resp 20 07/27/22 11:05 BP 130/77 07/27/22 11:05 Pulse Ox 98 07/27/22 11:05 O2 Del Method 07/27/22 11:05 BMI result Body Mass Index 24.5 Const: Other: General awake aler t, in no acute dis tress.? Neck suppl e CVS? regular rat e rhythm, Respirat ory lungs clear to auscultation, no respiratory distre ss, no wheeze, no rhonchi. Gastroint estinal abdomen so ft, nontender, bow el sounds audible Extremities lower extremity, no roseanna a. Neuro nonfocal , speech clear. Ri ght upper extremit y well-healed smal l ulcer at upper f orearm no warmth, mild induration ri ght upper arm less erythema ,mild te nderness . Left el bow swelling and t enderness improved no redness, no in duration, good ran ge of motion left elbow. DS: Data Data Completed and Pending Labs on day of discharge: Laboratory Results - last 24 hr 07/26/22 08:46 HIV 1&2 Ab/P24 Ag 4thGn Nonreactive Discharge Plan Discharge Anticipated Discharge Date/Time: 07/27/22 11:01 Patient Disposition: Home, Self-Care Discharge Diagnosis: Streptococcus bacteremia opioid dependence Referrals: [facility] [Other] - 1 Week [facility] [Other] - 1 Week Physician,Unknown J [Primary Care Provider] - 1 Week Discharge Medications: New nicotine 21 mg/24 hr Patch 24 Hour 21 mg transdermal DAILY Qty: 28 0RF cefuroxime axetil 500 mg Tablet 500 mg PO BID Qty: 26 0RF oxycodone 5 mg Tablet 10 mg PO Q6H PRN (Reason: Pain, Severe (Pain Scale 7-10)) Qty: 16 0RF Rx Instructions: Partial Fill upon patient request. Continued hydroxyzine HCl 50 mg tablet 100 mg PO QID PRN (Reason: anxiety) Qty: 30 0RF ibuprofen 600 mg tablet 600 mg PO Q8H PRN (Reason: pain) Qty: 30 0RF clonidine HCl 0.1 mg tablet 0.1 mg PO Q6H PRN (Reason: anxiety) Discharge Orders: Discharge Order (Routine); Ordered 07/27/22 Ordered By: Jack Pinzon Diet: Advance to usual diet Activity on Discharge: As tolerated Stand Alone Forms: Patient Portal Discharge page Care Plan Goals: Take by mouth antibiotic Ceftin for 13 more days as prescribed Strongly recommend to abstain from illicit drug use Outpatient follow-up to continue methadone Apply hot pack to right upper arm Health Concerns: Illicit drug use/nicotine use disorder strongly recommend to abstain from illicit drug use and continue nicotine patch Plan of Treatment: Outpatient follow-up with primary care physician and at [facility] outpatient to continue methadone Assessment: as above.
--- NOTE | 2022-07-27 13:13 | MHC.CM.PN ---
Patient is discharged today self-care. She will transport via Shuttle. A [facility] coupon has been given to the patient. She is set up @ [facility] for Methadone. The Last dose letter provided. A Paper Script has been provided for pain medication.
== END 2022-07-27 14:02 | disposition home or self-care (01) | DRG 720 ==
LOC: HO.ED 07-23 01:08 → HO.EDOVER 07-23 02:19 → HO.IMC 07-23 15:04
PROVIDERS: Admitting Provider Internal Medicine; Emergency Provider Internal Medicine; Visit Provider Hospitalist
DX: A40.0 Sepsis due to streptococcus, group A (principal); R45.851 Suicidal ideations; F43.10 Post-traumatic stress disorder, unspecified; M25.422 Effusion, left elbow; F32.A Depression, unspecified; F11.23 Opioid dependence with withdrawal; F17.210 Nicotine dependence, cigarettes, uncomplicated; Z71.6 Tobacco abuse counseling; L03.113 Cellulitis of right upper limb; Z20.822 Contact with and (suspected) exposure to COVID-19; Z59.00 Homelessness unspecified; Z88.0 Allergy status to penicillin; Z79.899 Other long term (current) drug therapy
CPT/HCPCS: 36415; 71045; 73201; 80048; 80053; 80202; 80307; 82077; 82565; 82947; 83605; 83735; 85025; 85027; 85652; 86140; 87040; 87147; 87186; 87205; 87389; 87635; 93306; 96361; 96374; 96375; 99285; J0696; J1650; J1885; J2543; J3370; J3371; Q9967; S9485

== ENCOUNTER 2023-12-14 16:43 | Emergency (ER) | payer OTHER, MEDICAID, SELFPAY ==
[2023-12-14] VITALS (8 sets, daily range): BP systolic 95–144; BP diastolic 45–81; PULSE 81–111; RESP 12–22; TEMP 36.9–38.6; O2SAT 92–98; BMI 25.2
--- NOTE | 2023-12-14 17:20 | PC.NURSE ---
patient arrives VIA EMS, per EMS patient was found in an [place] [address] unresponsive, was given 20mg of intranasally, is now alert, still somnolent and somewhat resistant to treatment, patient admits to using 2g of fentanyl daily, when asking if patient would like detox patient states yes, i dont like feeling like this anymore patient not cooperative, frequently swatting at staff when being touched, refusing to wear nasal cannula. states it stings her nostrils and will not wear it. provider aware. patient placed on bus driver/monitor. provider at bedside to evaluate, patient noted to have oxygen saturation of 91% when sleeping however when awake patient has saturation of 95%.
--- NOTE | 2023-12-14 18:12 | MHC.EDTECH ---
Patient refused labs ,provider went and talk to Patient ,and Patient continue to refused labs ,rn aware .
--- NOTE | 2023-12-14 18:17 | ED_ITS ---
HPI - Overdose General Chief Complaint: Overdose Stated Complaint: OD, 20mg narcan Time Seen by Provider: 12/14/23 17:06 Source: patient and EMS Mode of arrival: EMS Limitations: no limitations History of Present Illness ED Provider: Kel Childs PA-C HPI Narrative: 33-year-old female with history of polysubstance use disorder, previously on methadone, homeless for the last 8 years who presents to the ER via EMS after she was found unresponsive in an alleyway. She required 20 mg of Narcan to be administered by EMS before she had any improvement in mentation. No report of respiratory arrest or needing of bagging. Patient states she used 1 bag of heroin today and left for . Last time she overdose was a month ago. She states she wants to go to rehab / detox. She states if she is let out of here today she will kill herself, go out on the street and overdose and . Patient reports she fell yesterday and hit her face on the ground. She sustained abrasions to her nose, forehead and cheek. She also reports pain in her right arm with an area of redness and warmth, this started after she fell. Denies drug use in this area. No fever or chills. complaint: accidental overdose Onset (ago): unknown Related Data Home Medications ?Medication ?Instructions ?Recorded ?Confirmed clonidine HCl 0.1 mg tablet 0.1 mg PO Q6H PRN anxiety 06/21/21 07/22/22 Previous Rx's ?Medication ?Instructions ?Recorded hydroxyzine HCl 50 mg tablet 100 mg (2 x 50 mg) PO QID PRN 11/04/20 anxiety #30 tabs ibuprofen 600 mg tablet 600 mg PO Q8H PRN pain #30 tabs 11/04/20 cefuroxime axetil 500 mg tablet 500 mg PO BID #26 tabs 07/27/22 nicotine 21 mg/24 hr daily 21 mg transdermal DAILY #28 ea 07/27/22 transdermal patch oxycodone 5 mg tablet 10 mg (2 x 5 mg) PO Q6H PRN Pain, 07/27/22 Severe (Pain Scale 7-10) #16 tabs Allergies Allergy/AdvReac Type Severity Reaction Status Date / Time amoxicillin Allergy Mild Hives Verified 12/14/23 16:59 Review of Systems 2 Review of Systems: Yes all other systems are reviewed and are negative PMFSH Past Medical History Medical History Anxiety Depression Ovarian cyst PTSD (post-traumatic stress disorder) Social History Social History Housing: Homeless Alcohol intake: current Alcohol intake frequency: 3 or more drinks per day Alcohol type: hard liquor Comment: sitter at bedside Patient Tobacco Use Status: Current everyday Tobacco user Tobacco use type: Cigarette Cigarette Packs Per Day: 1 Cigarettes Per Day: 20.0 Smoked in Last 30 Days: Yes Use of substances other than those prescribed or required for medical reasons: Yes Substance Use Type: Crack/Cocaine, IV Drugs and Opiates Substance Use Frequency: Daily Substance Use Frequency Other:: 2 g fentanyl daily Any prior treatment program specific to substance use: No Advance Directives: No Advance Directives Information Provided: No Do you have a plan to hurt others: No Plan Patient : No service: No Physical Exam 2 Vital Signs: Vital Signs: Last Vital Signs Temp 99.8 F 12/15/23 00:00 Pulse 93 12/15/23 00:00 Resp 16 12/15/23 00:00 BP 126/100 H 12/15/23 00:00 Pulse Ox 95 12/15/23 00:00 O2 Del Method Room Air 12/15/23 00:00 BMI result Body Mass Index 25.2 Appearance: Disheveled, chronically ill-appearing, unkempt, dirty young female with multiple scabs on her face Head: normocephalic, atraumatic. Eyes: Pupils we equal, round and reactive to light. ENT: Multiple superficial abrasions on the bridge of the nose, cheeks and forehead Pharynx normal. No tonsillar swelling or exudate. Neck: Normal inspection. Neck supple. CVS: Normal heart rate and rhythm. Pulses normal. No appreciated murmur Respiratory: No respiratory distress. Breath sounds normal. Abdomen: Soft and nontender. +BS x4 Skin: Skin warm and dry. Normal skin color. Extremities: No lower extremity edema. No joint swelling. Superficial abrasions on the bilateral lower extremities. There is a 5 cm area on the back of the right upper arm that is erythematous, warm, tender to touch without any central fluctuance, mild induration noted. Neuro/psych: Oriented X 3. No motor deficit. No sensory deficit. CN II-XII intact. Normal speech and cognition. Restless, yawning, anxious. Suicidal Course Reevaluation(s) Reevaluation #1: patient's lab work returned and was unremarkable. Patient is medically cleared at this time. She is suicidal saying that if she leaves here she will overdose and . She wants to go to detox. Physician observation started at 20:24. Patient placed in physician observation because patient is awaiting CARE team evaluation for the possible need of inpatient psych admission. At the time observation was started patient's vital signs were stable. Patient is alert and oriented. Neuro exam is non-focal. CV: RRR and lungs are clear. Will continue to monitor. Time: 20:24 Reevaluation #2: Patient found to have a fever 101.5. She was given Tylenol. She does have some mild cellulitis in the right upper extremity. Exam is not consistent with abscess. Lab work was reviewed she does not have a leukocytosis. Lactic acid and blood cultures were ordered given she has an active IV drug user. No murmur on exam. Will start on oral Keflex and doxycycline for now. Check viral swab. Monitor fever curve. No evidence of sepsis at this time. Time: 22:10 Medications Administered Generic Name Dose Route Start Last Admin Trade Name Freq PRN Reason Stop Dose Admin Cephalexin HCl 500 mg 12/15/23 00:00 12/15/23 00:53 Cephalexin 500 Mg Capsule PO 500 mg Q6H ABDON Administration Doxycycline Monohydrate 100 mg 12/14/23 22:15 12/14/23 22:41 Doxycycline Monohydrate 100 Mg Capsule PO 100 mg BID ABDON Administration Discontinued Medications Generic Name Dose Route Start Last Admin Trade Name Freq PRN Reason Stop Dose Admin Acetaminophen 975 mg 12/14/23 22:10 12/14/23 22:41 Acetaminophen 325 Mg Tablet PO 12/14/23 22:11 975 mg ONCE ONE Administration Medical Decision Making Medical Decision Making [facility] Narrative: 33-year-old female with a history of PTSD, polysubstance abuse with active IV drug use presents the [facility] 20 mg of Narcan. Patient arrives to the ER hemodynamically stable on room air. No respiratory distress. She is protecting her airway. Patient developed fever while in the ER. No evidence of sepsis. Started on empiric antibiotics orally for right upper extremity cellulitis. No other source of infection at this time. Given Tylenol with improvement in fever. Patient refusing lactic acid and blood cultures. Will continue to monitor fever curve, encouraged labs to be drawn, pending care team evaluation. Patient continued to express desire to go to rehab. Differential Diagnosis Differential Diagnoses: The differential diagnosis associated with the presentation includes substance induced mood disorder, acute psychosis, PTSD, bipolar disorder, intentional versus unintentional overdose Cellulitis, bacteremia, endocarditis Admission/Observation Consideration of admission/observation: Escalation of care including admission/observation considered Lab Data MDM Lab Attestation statement: I reviewed the patient's lab results. No leukocytosis 12/14/23 19:39 12/14/23 19:39 Labs: Lab Results 12/14/23 12/14/23 Range/Units 19:39 22:30 WBC 9.6 (4.8-10.8) X10*3/uL RBC 4.32 (4.20-5.50) X10*6/uL Hgb 13.1 D (12.0-16.0) g/dl Hct 37.7 (37.0-47.0) % MCV 87.3 (80.0-98.0) fL MCH 30.3 (27.0-33.0) pg MCHC 34.7 (31.0-35.0) g/dl RDW 13.2 (11.0-16.0) % Plt Count 227 D (160-400) X10*3/uL MPV 9.1 L (9.4-12.3) fL Immature Gran % (Auto) 0.2 (0.0-0.4) % Neut % (Auto) 78.8 H (45-73) % Lymph % (Auto) 13.2 L (20-40) % [facility] % (Auto) 7.1 (2-11) % Eos % (Auto) 0.5 (0-4) % Baso % (Auto) 0.2 (0-2) % Lymph # (Auto) 1.3 (1.2-4.9) X10*3/uL [facility] # (Auto) 0.7 (0.1-1.2) X10*3/uL Eos # (Auto) 0.1 (0.0-0.4) X10*3/uL Baso # (Auto) 0.0 (0.0-0.2) X10*3/uL Abs Immat Gran (auto) 0.02 (0.00-0.03) X10*3/uL Absolute Neuts (auto) 7.6 (2.0-8.3) x10*3/uL Absolute Nucleated RBC 0.000 (0.0-0.012) X10*3/uL Nucleated RBC % (auto) 0.0 (0.0-0.2) /100WBC Sodium 140 (135-145) mmol/L Potassium 3.8 (3.3-5.1) mmol/L Chloride 105 (96-108) mmol/L Carbon Dioxide 26 (22-29) mmol/L Anion Gap 13 (12-20) BUN 14 (9-16) mg/dL Creatinine 0.74 (0.5-1.4) mg/dL Estim Creat Clear Calc 98.7 Estimated GFR > 60 Random Glucose 90 (60-115) mg/dL Calcium 9.3 D (8.4-10.2) mg/dL Magnesium 1.9 (1.6-2.6) mg/dL Total Bilirubin 0.6 (0.0-1.0) mg/dL Direct Bilirubin 0.2 (0.0-0.5) mg/dL AST 28 (5-31) U/L ALT 19 (0-31) U/L Alkaline Phosphatase 73 (39-117) U/L Total Protein 7.5 (6.5-8.0) g/dL Albumin 4.3 (3.5-5.0) g/dL Ethyl Alcohol < 10 mg/dL Influenza Type A (PCR) NEGATIVE (Negative) Influenza Type B (PCR) NEGATIVE (Negative) RSV RNA Qual (PCR) NEGATIVE (Negative) SARS-CoV-2 RNA (RT-PCR) NEGATIVE (Negative) Independent Historian Clinical information obtained from an independent historian. History obtained from or confirmed by: EMS Tests considered The following testing was considered but not selected: Considered chest x-ray and given the amount of Narcan that she received and fever Prescription Management I considered prescription management with: Antibiotic Chronic Conditions Patient?s care impacted by: Other (IV drug use) Social Determinants Patient?s care significantly limited by Social Determinants of Health including: Inadequate housing, Problems related to primary support group and Other Social Determinant of Health Critical Care Time Critical Care Time Critical Care Time: No Discharge Plan Discharge Clinical Impression: Suicidal ideation, Cellulitis of arm, right Drug overdose Qualifiers: Encounter type: initial encounter Injury intent: accidental or unintentional Q ualified Code(s): T50.901A - Poisoning by unspecified drugs, medicaments and biological substances, accidental (unintentional), initial encounter Patient Disposition: Still a Patient Prescriptions: No Action hydroxyzine HCl 50 mg tablet 100 mg PO QID PRN (Reason: anxiety) Qty: 30 0RF ibuprofen 600 mg tablet 600 mg PO Q8H PRN (Reason: pain) Qty: 30 0RF clonidine HCl 0.1 mg tablet 0.1 mg PO Q6H PRN (Reason: anxiety) nicotine 21 mg/24 hr Patch 24 Hour 21 mg transdermal DAILY Qty: 28 0RF cefuroxime axetil 500 mg Tablet 500 mg PO BID Qty: 26 0RF oxycodone 5 mg Tablet 10 mg PO Q6H PRN (Reason: Pain, Severe (Pain Scale 7-10)) Qty: 16 0RF Rx Instructions: Partial Fill upon patient request. Print Language: Azeri
--- NOTE | 2023-12-14 18:35 | MHC.EDTECH ---
Patient belongings are locked up in decon ,Patient made si statement while Provider was in room ,Dulce NAVARRO and artificial glass eye maker Luka aware 1 :1 sitter at bedside .
[2023-12-14 19:44] LABS: MANUAL DIFF FLAG NO
[2023-12-14 19:46] LABS: Basophils Percent Auto 0.2 % (0-2); Eosinophils Absolute Auto 0.1 X10*3/uL (0.0-0.4); Eosinophils Percent Auto 0.5 % (0-4); Hematocrit 37.7 % (37.0-47.0); Hemoglobin 13.1 g/dl (12.0-16.0); Imm Gran Abs Auto 0.02 X10*3/uL (0.00-0.03); Imm Gran Pct Auto 0.2 % (0.0-0.4); Lymphocytes Absolute Auto 1.3 X10*3/uL (1.2-4.9); Lymphocytes Percent Auto 13.2 % (20-40); Mean Corpuscular HGB Conc 34.7 g/dl (31.0-35.0); Mean Corpuscular Hemoglobin 30.3 pg (27.0-33.0); Mean Corpuscular Volume 87.3 fL (80.0-98.0); Mean Platelet Volume 9.1 fL (9.4-12.3); Monocytes Absolute Auto 0.7 X10*3/uL (0.1-1.2); Monocytes Percent Auto 7.1 % (2-11); Neutrophils Absolute Auto 7.6 x10*3/uL (2.0-8.3); Neutrophils Percent Auto 78.8 % (45-73); Platelet Count 227 X10*3/uL (160-400); Red Blood Count 4.32 X10*6/uL (4.20-5.50); Red Cell Distribution Width 13.2 % (11.0-16.0); White Blood Count 9.6 X10*3/uL (4.8-10.8)
[2023-12-14 20:14] LABS: Alanine Aminotransferase 19 U/L (0-31); Albumin Level 4.3 g/dL (3.5-5.0); Alkaline Phosphatase 73 U/L (39-117); Anion Gap 13 (12-20); Aspartate Amino Transferase 28 U/L (5-31); Bilirubin Direct 0.2 mg/dL (0.0-0.5); Bilirubin Total 0.6 mg/dL (0.0-1.0); Blood Urea Nitrogen 14 mg/dL (9-16); Calcium 9.3 mg/dL (8.4-10.2); Carbon Dioxide 26 mmol/L (22-29); Chloride 105 mmol/L (96-108); Creatinine Clr Calc Pharmacy 98.7; Estimated Glomerular Filt Rate > 60; Ethanol < 10 mg/dL; Glucose Random 90 mg/dL (60-115); Magnesium 1.9 mg/dL (1.6-2.6); Potassium 3.8 mmol/L (3.3-5.1); Sodium 140 mmol/L (135-145); Total Protein 7.5 g/dL (6.5-8.0)
--- NOTE | 2023-12-14 20:19 | MHC.EDTECH ---
pt vital signs checked, pt refuse BP check- ripped cuff off.
--- NOTE | 2023-12-14 20:57 | MHC.EDTECH ---
PATIENT HAD TURKEY SANDWICH ,JELLO AND DRANK 2 CANS OF REYNA YUMIKO .
--- NOTE | 2023-12-14 21:39 | MHC.EDTECH ---
Pt requested turkey sandwich, at bedside, pt sleeping again.
--- NOTE | 2023-12-14 21:51 | MHC.EDTECH ---
Pt's vital signs checked, RN aware, pt sleeping.
[2023-12-14] MEDS: Acetaminophen 325 MG TABLET 975 MG PO (22:41)
[2023-12-14] MEDS: Doxycycline Monohydrate 100 MG CAPSULE PO (22:41)
--- NOTE | 2023-12-14 22:42 | PC.NURSE ---
pt upset about her diner throwing her water on the floor, demanding staff to get her food, pt was spoken to about the care she has received and the plan of care. pt was given a sandwhich and gingerale along with snacks, pt still verbal with staff. plan is to hold on sending pt to the pod till bp improves and temp is resolved this is a plan per provider Sade.
--- NOTE | 2023-12-14 22:43 | PC.NURSE ---
pt adamantly refusing blood cultures and lactic blood draw. provider aware. pt medicated per MAR for fever
--- NOTE | 2023-12-14 23:03 | MHC.EDTECH ---
Patient refused blood culture and lactic acid .Provider aware .
[2023-12-14 23:13] LABS: Influenza A PCR NEGATIVE (Negative); Influenza B PCR NEGATIVE (Negative); Resp Syncy Virus RNA Qual PCR NEGATIVE (Negative); SARS COV2 PCR INHOUSE NEGATIVE (Negative)
[2023-12-15] VITALS: BP 126/100; PULSE 93; RESP 16; TEMP 37.7; O2SAT 95
[2023-12-15] MEDS: cephALEXin 500 MG CAPSULE PO ×4 (00:53→18:10)
[2023-12-15 02:17] VITALS: BP 104/57; PULSE 89; RESP 14; TEMP 37.2; O2SAT 93
[2023-12-15 03:47] VITALS: BP 113/48; PULSE 71; RESP 15; TEMP 37; O2SAT 95
[2023-12-15 06:18] VITALS: BP 105/56; PULSE 74; RESP 15; TEMP 37.3; O2SAT 96
--- NOTE | 2023-12-15 06:18 | PC.NURSE ---
pt refused labs again
--- NOTE | 2023-12-15 06:19 | MHC.EDTECH ---
Patient continue to refused blood culture and lactic acid ,also waiting for urine sample ,TRI De Los Santos aware ,This Pct is Providing 1 :1 with Patient .
--- NOTE | 2023-12-15 06:23 | PC.NURSE ---
pt not cooperative with assessment questions at this time
--- NOTE | 2023-12-15 07:35 | PC.NURSE ---
this RN resumed care of pt at 0645. pt currently asleep/resting in no apparent distress. no sob/wob noted. respirations even/unlabored. 1:1 sitter remains bedside plan of care ongoing. call tucker placed within reach.
[2023-12-15] MEDS: Doxycycline Monohydrate 100 MG CAPSULE PO ×2 (08:27→21:21)
[2023-12-15 08:31] VITALS: BP 126/73; PULSE 75; RESP 16; TEMP 37.1; O2SAT 95
--- NOTE | 2023-12-15 08:31 | PC.NURSE ---
pt woken up so abx can be administered. abx administered per provider order. vss and up to date. pt remains afebrile. pt refusing to provide urine sample. states, i don't have to go right now. gingerale provided to pt in hopes that sample can be obtained. plan of care ongoing. call tucker placed within reach.
--- NOTE | 2023-12-15 08:43 | PC.NURSE ---
report given to TRI Sorenson in the pod at this time. will transport pt shortly.
[2023-12-15 16:07] VITALS: BP 113/63; PULSE 53; RESP 16; TEMP 37; O2SAT 97
--- NOTE | 2023-12-15 16:08 | MHC.EDTECH ---
THIS PCT ASSUMED CARE OF PATIENT AT 1500,PATIENT SLEEPING ,WOKE UP VITALS TAKEN ,PATIENT HAD 2 PUDDINGS FOR SNACK .
--- NOTE | 2023-12-15 18:44 | PC.NURSE ---
Patient is continuing to refuse labs and urine screen
--- NOTE | 2023-12-15 19:34 | PC.NURSE ---
patient appears to remain asleep at present respirations are even and unlabored patient appears in no distress
[2023-12-16 03:05] VITALS: PULSE 76
[2023-12-16 06:27] VITALS: RESP 16
--- NOTE | 2023-12-16 07:10 | PC.NURSE ---
Assumed care of patient at 0645. No signs of distress, breathing is even and unlabored. Patient is observed resting quietly in their bed.
[2023-12-16] MEDS: cephALEXin 500 MG CAPSULE PO (07:13)
[2023-12-16 08:13] LABS: Appearance Urine Cloudy; Color Urine Dark Yellow; Glucose Urine UA Negative (Negative); Leukocyte Esterase Urine Small (1+) (Negative); Nitrite Urine Negative (Negative); Specific Gravity - Urine >= 1.030 (1.005-1.025); UMIC TRIGGER UACC YES; Urine Blood Negative (Negative); Urine Ketones Negative (Negative); Urine Protein Trace mg/dL (Neg-Trace)
[2023-12-16 08:14] LABS: UPreg QC Valid YES; Urine Pregnancy NEGATIVE (NEGATIVE)
[2023-12-16 08:22] LABS: Amphetamine Screen Urine Not Detected (Not Detect); Barbiturates, Urine POSITIVE (Not Detect); Benzodiazepines Screen Urine Not Detected (Not Detect); Buprenorphine Scr Not Detected (Not Detect); Cannabinoid Screen Urine Not Detected (Not Detect); Cocaine Screen Urine POSITIVE (Not Detect); Fentanyl, urine POSITIVE (Not Detect); Methadone Screen, Urine Positive (Not Detect); Opiate Screen Urine POSITIVE (Not Detect); Oxycodone Screen Urine Not Detected (Not Detect); Phencyclidine Screen Urine Not Detected (Not Detect)
[2023-12-16 08:29] LABS: Bacteria Urine 3+ (None Seen); Hyaline Casts Urine 0-2 /LPF (0-2); RBC Urine 0-2 /HPF (0-2); Squamous Epithelial Cell Urine >20 /HPF (0-2); UACC Culture Trigger YES
[2023-12-16] MEDS: Doxycycline Monohydrate 100 MG CAPSULE PO (08:59)
--- NOTE | 2023-12-16 09:40 | PC.NURSE ---
Unable to verify methadone dose with [facility], [facility], [facility] and [facility]. Per the clinics the patient does not dose there.
[2023-12-16 11:50] VITALS: BP 113/63; PULSE 53; RESP 16; TEMP 37; O2SAT 97
--- NOTE | 2023-12-16 12:16 | MHC.CARE ---
Pt has been placed on alert with [facility]
--- NOTE | 2023-12-17 15:31 | HO.SUDE ---
Please see CARE Team Assessments.
== END 2023-12-16 11:53 | disposition home or self-care (01) ==
PROVIDERS: Physician Assistant; Emergency Provider Emergency Medicine
DX: F32.A Depression, unspecified (principal); R45.851 Suicidal ideations; L03.113 Cellulitis of right upper limb; F19.10 Other psychoactive substance abuse, uncomplicated; F41.9 Anxiety disorder, unspecified; F43.10 Post-traumatic stress disorder, unspecified; S00.31XA Abrasion of nose, initial encounter; S00.81XA Abrasion of other part of head, initial encounter; S80.812A Abrasion, left lower leg, initial encounter; S80.811A Abrasion, right lower leg, initial encounter; W18.30XA Fall on same level, unspecified, initial encounter; R50.9 Fever, unspecified; F17.210 Nicotine dependence, cigarettes, uncomplicated; Y93.89 Activity, other specified; T50.901A Poisoning by unspecified drugs, medicaments and biological substances, accidental (unintentional), initial encounter; Y92.480 Sidewalk as the place of occurrence of the external cause; Y99.9 Unspecified external cause status; Z03.818 Encounter for observation for suspected exposure to other biological agents ruled out; Z79.899 Other long term (current) drug therapy
CPT/HCPCS: 0241U; 36415; 80048; 80076; 80307; 81001; 81025; 83735; 85025; 87086; 99285; S9485

== ENCOUNTER 2023-12-22 14:49 | Emergency (ER) | payer MEDICAID, SELFPAY ==
[2023-12-22 14:53] VITALS: BMI 20.6
[2023-12-22 18:00] VITALS: PULSE 70; RESP 14; TEMP 36.7
[2023-12-22 20:11] VITALS: BP 140/96; PULSE 53; RESP 16; O2SAT 98
--- NOTE | 2023-12-22 22:23 | ED.OVERDOSE ---
HPI - Overdose General Chief Complaint: Overdose Stated Complaint: OVERDOSE, NARCAN GIVEN PER EMS Time Seen by Provider: 12/22/23 16:15 Source: patient, EMS, RN notes reviewed and old records reviewed Mode of arrival: EMS History of Present Illness ED Provider: Sheila Camejo PA-C HPI Narrative: 33-year-old female with a past medical history of IVDA, depression, PTSD, anxiety, presenting to the ED via EMS s/p being found unresponsive in the street, given intranasal Narcan with good effect. Patient denies using any illicit substances or EtOH. Denies injury, trauma or fall. Remaining history limited due to patient being uncooperative Related Data Home Medications ?Medication ?Instructions ?Recorded ?Confirmed clonidine HCl 0.1 mg tablet 0.1 mg PO Q6H PRN anxiety 06/21/21 07/22/22 Previous Rx's ?Medication ?Instructions ?Recorded hydroxyzine HCl 50 mg tablet 100 mg (2 x 50 mg) PO QID PRN 11/04/20 anxiety #30 tabs ibuprofen 600 mg tablet 600 mg PO Q8H PRN pain #30 tabs 11/04/20 cefuroxime axetil 500 mg tablet 500 mg PO BID #26 tabs 07/27/22 nicotine 21 mg/24 hr daily 21 mg transdermal DAILY #28 ea 07/27/22 transdermal patch oxycodone 5 mg tablet 10 mg (2 x 5 mg) PO Q6H PRN Pain, 07/27/22 Severe (Pain Scale 7-10) #16 tabs doxycycline monohydrate 100 mg 100 mg PO BID #14 caps 12/16/23 capsule Allergies Allergy/AdvReac Type Severity Reaction Status Date / Time amoxicillin Allergy Mild Hives Verified 12/22/23 14:57 Review of Systems Review of Systems: ROS limited due to patient being uncooperative/acute mental status Yes all other systems are reviewed and are negative Constitutional: Constitutional: Reports as per HPI [facility], [facility] Past Medical History Attestation statement: The following information was validated with the patient. Source: old records reviewed Medical History IVDU (intravenous drug user) Leukocytosis Depression Opioid use disorder, severe, dependence PTSD (post-traumatic stress disorder) Anxiety Depression Ovarian cyst Social History Social History Housing: Homeless Unable to assess alcohol history related to: Refusing to respond Alcohol intake: current Alcohol intake frequency: 3 or more drinks per day Alcohol type: hard liquor Comment: sitter at bedside Patient Tobacco Use Status: Current everyday Tobacco user Tobacco use type: Cigarette Cigarette Packs Per Day: 1 Cigarettes Per Day: 20.0 Smoked in Last 30 Days: Yes Use of substances other than those prescribed or required for medical reasons: Refusing to respond Substance Use Type: Crack/Cocaine, IV Drugs and Opiates Advance Directives: No Advance Directives Information Provided: No Do you have a plan to hurt others: No Plan service: No Physical Exam Vital Signs: Vital Signs: Last Vital Signs Temp 98.0 F 12/22/23 18:00 Pulse 53 12/22/23 20:11 Resp 16 12/22/23 20:11 BP 140/96 H 12/22/23 20:11 Pulse Ox 98 12/22/23 20:11 O2 Del Method Room Air 12/22/23 20:11 BMI result Body Mass Index 20.6 Const: Other: Appears under the influence General: no acute distress; No cooperative HEENT: Other: Healing/scabbed abrasions noted to face Head: Yes normal to inspection Ears: hearing grossly normal bilaterally General nose exam: Normal external nose present Eyes: General: appearance normal, both eyes and all related structures EOM: EOMs intact bilaterally Neck: Neck: Yes normal visual inspection and Yes no meningeal signs Resp: Effort & Inspection: normal respiratory effort and no respiratory distress Cardio: Rate: regular rate Heart sounds: S1 normal heart sound present and S2 normal heart sound present GI: Palpation (GI): nontender Skin: Rashes: no rashes Neuro: General: tone normal, no meningeal signs and CN's II-XI intact bilaterally Cranial nerves: Yes CN's II-XII intact bilaterally Extrem: General: Yes normal to inspection Course Course Course Narrative: -patient has continued to maintain airway, eat multiple sandwiches in the emergency department. Easily arousable however still lethargic. Physician observation initiated at 22:31 as patient needs more time for clinical sobriety & addiction medicine consult -[id number]--patient ambulating in the ED with steady gait. Safe for discharge at this time. Denies SI. Will be discharged with Narcan to go Results discussed with patient including worrisome signs and symptoms and strict return precautions, and when to return to the emergency department. They verbalized understanding and feel safe for discharge at this time. Medical Decision Making Medical Decision Making MDM Narrative: 33-year-old female with a past medical history of IVDA, depression, PTSD, anxiety, presenting to the ED via EMS s/p being found unresponsive in the street, given intranasal Narcan with good effect. On exam vital signs stable, maintaining airway, no respiratory distress, appears under the influence, sleeping, easily arousable, not cooperative with history or physical, agitated when awoken. Concern for polysubstance use/overdose. Lower suspicion for ICH or infectious etiology. No evidence of acute trauma Plan: Tox screen, Observe and re-evaluate, Narcan to go home Please refer to course for remaining clinical decision making, interpretation of labs/imaging results, and discussions with consultants and/or family members. Differential Diagnosis Differential Diagnoses: The differential diagnosis associated with the presentation includes As above Admission/Observation Consideration of admission/observation: Escalation of care including admission/observation considered Independent Historian Clinical information obtained from an independent historian. History obtained from or confirmed by: EMS External Record Review External record reviewed: Inpatient record, Office record, Outpatient record, Prior outpatient labs, Prior outpatient radiology, Primary care record and Outside ED record Tests considered The following testing was considered but not selected: As above Social Determinants Patient?s care significantly limited by Social Determinants of Health including: Alcoholism and drug addiction in family Discharge Plan Discharge Clinical Impression: Drug overdose Patient Disposition: Still a Patient Instructions: Adult Overdose (ED) Additional Instructions: Avoid drugs and alcohol this can kill you Have Narcan on you at all times Prescriptions: No Action hydroxyzine HCl 50 mg tablet 100 mg PO QID PRN (Reason: anxiety) Qty: 30 0RF ibuprofen 600 mg tablet 600 mg PO Q8H PRN (Reason: pain) Qty: 30 0RF clonidine HCl 0.1 mg tablet 0.1 mg PO Q6H PRN (Reason: anxiety) nicotine 21 mg/24 hr Patch 24 Hour 21 mg transdermal DAILY Qty: 28 0RF cefuroxime axetil 500 mg Tablet 500 mg PO BID Qty: 26 0RF oxycodone 5 mg Tablet 10 mg PO Q6H PRN (Reason: Pain, Severe (Pain Scale 7-10)) Qty: 16 0RF Rx Instructions: Partial Fill upon patient request. doxycycline monohydrate 100 mg capsule 100 mg PO BID Qty: 14 0RF Referrals: [facility] [Provider Group] Valorie Epstein CNP [Nurse Practitioner] - Print Language: Nepalese
[2023-12-22] MEDS: Naloxone HCl Nasal TAKE HOME 4 MG SPRAY 8 MG NOSTRILALT (22:42)
== END 2023-12-22 22:55 | disposition home or self-care (01) ==
PROVIDERS: Emergency Provider Internal Medicine
DX: T50.901A Poisoning by unspecified drugs, medicaments and biological substances, accidental (unintentional), initial encounter (principal); F19.10 Other psychoactive substance abuse, uncomplicated; R40.4 Transient alteration of awareness; Y92.410 Unspecified street and highway as the place of occurrence of the external cause; F11.20 Opioid dependence, uncomplicated; F17.210 Nicotine dependence, cigarettes, uncomplicated
CPT/HCPCS: 99284